=== PATIENT | male | born 1940 | race Caucasian/White ===

== ENCOUNTER 2019-01-24 20:43 | Emergency (ER) | payer MEDICARE, OTHER ==
[~2019-01-24] VITALS: Ht 182.9 cm; Wt 77.1 kg
[~2019-01-24 20:43] MED LIST: FOSI10
[2019-01-24 21:21] LABS: BASOPHILS ABSOLUTE AUTO 0.06 K/mm3 (0.00-0.23); BASOPHILS PERCENT AUTO 1 % (0-2); EOSINOPHILS ABSOLUTE AUTO 0.36 K/mm3 (0.00-0.68); EOSINOPHILS PERCENT AUTO 5 % (0-6); Hematocrit 39.6 % (37.0-53.0); Hemoglobin 12.9 g/dL (13.5-17.5); IMMATURE GRAN ABSOLUTE AUTO 0.02 K/mm3 (0.00-0.10); IMMATURE GRAN PERCENT AUTO 0 % (0-1); LYMPHOCYTES ABSOLUTE AUTO 1.49 K/mm3 (0.84-5.20); LYMPHOCYTES PERCENT AUTO 22 % (21-46); MONOCYTES ABSOLUTE AUTO 0.72 K/mm3 (0.16-1.47); MONOCYTES PERCENT AUTO 11 % (4-13); Mean Corpuscular HGB 30.6 pg (26.0-34.0); Mean Corpuscular HGB Conc 32.6 g/dL (31.5-36.5); Mean Corpuscular Volume 94 fL (80-100); Mean Platelet Volume 9.9 fL (9.1-12.4); NEUTROPHILS PERCENT AUTO 60 % (41-73); Platelet Count 214 K/mm3 (150-400); RDW Coefficient Variation 13.1 % (11.7-14.2); RDW Standard Deviation 44.8 fL (35.1-46.3); Red Blood Cell Count 4.21 M/mm3 (4.30-5.90); White Blood Cell Count 6.65 K/mm3 (4.00-11.30)
[2019-01-24 21:36] LABS: International Normalized Ratio 0.97; Prothrombin Time Results 10.3 Sec (9.7-11.5)
[2019-01-24] MEDS ORDERED: LOSARTAN (21:36)
[2019-01-24] MEDS ORDERED: LIPITOR (21:36)
[2019-01-24] MEDS ORDERED: METOPROLOL (21:36)
[2019-01-24] MEDS ORDERED: PLAVIX (21:37)
[2019-01-24] MEDS ORDERED: METFORMIN (21:37)
[2019-01-24 21:40] LABS: Alanine Aminotransfer (ALT/SGP 28 U/L (12-78); Albumin, Blood 3.7 g/dL (3.4-5.0); Albumin/Globulin Ratio 1.2 (0.8-1.8); Alk Phos 76 U/L (50-136); Anion Gap 6 mmol/L (6-16); Aspartate Aminotrans (AST/SGOT 22 U/L (12-37); Bilirubin, Total 0.5 mg/dL (0.1-1.0); Blood Urea Nitrogen 25 mg/dL (8-24); Bun/Creatinine Ratio 24.5 (12.0-20.0); CO2, Blood 25 mmol/L (21-32); Calcium, Blood 8.7 mg/dL (8.5-10.1); Chloride, Blood 107 mmol/L (98-108); Creatinine, Blood 1.02 mg/dL (0.60-1.20); Glomerular Filtration Rate >60 (60-); Glucose, Blood 126 mg/dL (70-99); Potassium, Blood 3.8 mmol/L (3.5-5.5); Sodium, Blood 138 mmol/L (136-145); Total Protein, Blood 6.7 g/dL (6.4-8.2)
== END 2019-01-24 22:35 | disposition short-term general hospital (02) ==
LOC: ER 20:43
PROVIDERS: Emergency Medicine
DX: I63.312 Cerebral infarction due to thrombosis of left middle cerebral artery (principal); R29.710 NIHSS score 10; R29.810 Facial weakness; G81.91 Hemiplegia, unspecified affecting right dominant side; R47.01 Aphasia; Z88.5 Allergy status to narcotic agent
CPT/HCPCS: 37195; 51702; 70450; 70496; 70498; 71045; 80053; 85025; 85610; 93005; 93010; 96365-59; 96374-59; 99285-25; J2997; Q3014; Q9967

== ENCOUNTER → 2019-05-14 | Outpatient (CLI) | payer MEDICARE, OTHER ==
[~2019-05-14] MED LIST changes: +LIPITOR; +LOSARTAN; +METFORMIN; +METOPROLOL; +PLAVIX
[2019-05-14 15:49] LABS: Source, Urine Clean Catch
[2019-05-14 16:56] LABS: Bilirubin, Urine Neg (Neg); Blood, Urine 5+ (Neg); Glucose Qualitative, Urine Neg (Neg); Ketones, Urine 1+ (Neg); Leukocyte Esterase, Urine 3+ (Neg); Nitrite, Urine Pos (Neg); Protein, Urine 4+ (Neg); Urobilinogen, Urine 1+ (Normal)
[2019-05-14 17:03] LABS: Appearance, Urine Cloudy (Clear); Color, Urine Yellow (P-Yellow)
[2019-05-14 17:04] LABS: White Blood Cells, Urine TNTC /hpf (0-5)
[2019-05-14 17:05] LABS: Bacteria Many /hpf; Red Blood Cells, Urine TNTC /hpf (0-2); Squamous Epithelial Cells Not Seen /hpf (Few)
== END ==
LOC: LAB SHORT 15:47
PROVIDERS: Urology
DX: N39.0 Urinary tract infection, site not specified (principal)
CPT/HCPCS: 81001

== ENCOUNTER 2019-06-04 05:42 | Emergency (ER) | payer MEDICARE, OTHER ==
[~2019-06-04] VITALS: Ht 172.7 cm; Wt 68.0 kg
[2019-06-04] MEDS ORDERED: TAMSULOSIN HCL0.4 M1 PO (06:08)
[2019-06-04] MEDS ORDERED: ATORVASTATIN CA20 MG PO (06:09)
[2019-06-04] MEDS ORDERED: WARF4 PO (06:09)
[2019-06-04] MEDS ORDERED: METOPROLOL TART25 MG PO (06:09)
[2019-06-04] MEDS ORDERED: ACET325 PO (06:10)
[2019-06-04] MEDS ORDERED: METF500 PO (06:11)
[2019-06-04] MEDS ORDERED: MELA3 PO (06:11)
[2019-06-04] MEDS ORDERED: MIRALAX17 GM PO (06:12)
[2019-06-04] MEDS ORDERED: MAG GLYCINATE100 MG PO (06:13)
[2019-06-04] MEDS ORDERED: Zovirax800 MG PO (06:24)
[2019-06-04] MEDS ORDERED: Prednisone20 MG PO (06:24)
== END 2019-06-04 07:09 | disposition home or self-care (01) ==
LOC: ER 05:42
DX: B02.9 Zoster without complications (principal); Z88.5 Allergy status to narcotic agent; Z88.8 Allergy status to other drugs, medicaments and biological substances; Z79.899 Other long term (current) drug therapy; Z79.01 Long term (current) use of anticoagulants; Z79.84 Long term (current) use of oral hypoglycemic drugs; I10 Essential (primary) hypertension; I25.2 Old myocardial infarction; Z86.73 Personal history of transient ischemic attack (TIA), and cerebral infarction without residual deficits
CPT/HCPCS: 93005; 93010; 99283-25

== ENCOUNTER 2019-09-07 19:41 | Inpatient (IN) | payer MEDICARE, OTHER ==
[~2019-09-07] VITALS: Ht 172.7 cm; Wt 61.4 kg
[~2019-09-07 19:41] MED LIST changes: +ACET325 PO; +ATORVASTATIN CA20 MG PO; +MAG GLYCINATE100 MG PO; +MELA3 PO; +METF500 PO; +METOPROLOL TART25 MG PO; +MIRALAX17 GM PO; +Prednisone20 MG PO; +TAMSULOSIN HCL0.4 M1 PO; +WARF4 PO; +Zovirax800 MG PO
[2019-09-07] MEDS ORDERED: PLAVIX75 MG PO (19:53)
[2019-09-07] MEDS ORDERED: ASPI325 PO (19:55)
[2019-09-07 20:58] LABS: BASOPHILS ABSOLUTE AUTO 0.01 K/mm3 (0.00-0.23); BASOPHILS PERCENT AUTO 0 % (0-2); EOSINOPHILS PERCENT AUTO 0 % (0-6); Hematocrit 33.2 % (37.0-53.0); Hemoglobin 10.8 g/dL (13.5-17.5); IMMATURE GRAN ABSOLUTE AUTO 0.11 K/mm3 (0.00-0.10); IMMATURE GRAN PERCENT AUTO 1 % (0-1); LYMPHOCYTES ABSOLUTE AUTO 0.53 K/mm3 (0.84-5.20); LYMPHOCYTES PERCENT AUTO 4 % (21-46); MONOCYTES ABSOLUTE AUTO 0.78 K/mm3 (0.16-1.47); MONOCYTES PERCENT AUTO 5 % (4-13); Mean Corpuscular HGB 29.9 pg (26.0-34.0); Mean Corpuscular HGB Conc 32.5 g/dL (31.5-36.5); Mean Corpuscular Volume 92 fL (80-100); NEUTROPHILS ABSOLUTE AUTO 13.58 K/mm3 (1.96-9.15); NEUTROPHILS PERCENT AUTO 91 % (41-73); Platelet Count 313 K/mm3 (150-400); RDW Coefficient Variation 14.1 % (11.7-14.2); RDW Standard Deviation 47.8 fL (35.1-46.3); Red Blood Cell Count 3.61 M/mm3 (4.30-5.90); White Blood Cell Count 15.01 K/mm3 (4.00-11.30)
[2019-09-07 21:12] LABS: Source, Urine Catheter
[2019-09-07 21:14] LABS: Bilirubin, Urine Neg (Neg); Blood, Urine 4+ (Neg); Glucose Qualitative, Urine Neg (Neg); Ketones, Urine 1+ (Neg); Leukocyte Esterase, Urine 3+ (Neg); Nitrite, Urine Neg (Neg); Protein, Urine 3+ (Neg); Urobilinogen, Urine 2+ (Normal)
[2019-09-07 21:17] LABS: Alanine Aminotransfer (ALT/SGP 21 U/L (12-78); Albumin/Globulin Ratio 0.4 (0.8-1.8); Alk Phos 102 U/L (50-136); Anion Gap 6 mmol/L (6-16); Aspartate Aminotrans (AST/SGOT 19 U/L (12-37); Bilirubin, Total 0.4 mg/dL (0.1-1.0); Blood Urea Nitrogen 28 mg/dL (8-24); Bun/Creatinine Ratio 50.5 (12.0-20.0); CO2, Blood 25 mmol/L (21-32); Calcium, Blood 8.9 mg/dL (8.5-10.1); Chloride, Blood 107 mmol/L (98-108); Creatinine, Blood 0.55 mg/dL (0.60-1.20); Globulin, Blood 4.6 g/dL (2.2-4.0); Glomerular Filtration Rate >60 (60-); Glucose, Blood 180 mg/dL (70-99); Potassium, Blood 3.3 mmol/L (3.5-5.5); Sodium, Blood 138 mmol/L (136-145); Total Protein, Blood 6.6 g/dL (6.4-8.2)
[2019-09-07 21:29] LABS: Appearance, Urine Hazy (Clear); Bacteria Many /hpf; Color, Urine Yellow (P-Yellow); Mucus Light (0-Heavy); Squamous Epithelial Cells Few /hpf (Few); White Blood Cells, Urine 25-50 /hpf (0-5)
--- NOTE | 2019-09-08 05:07 | NUR ---
RECEIVED CALL FROM TELE MORNING CAREGIVER REPORTING PT HR 140-145. LOPRESSOR ADMINISTERED. BP 124/69 PULSE 145 BEFORE ADMINISTRATION AT 0047, BP 118/69 PULSE 118 AFTER ADMINISTRATION AT 0055. PT DENIES SOB, CHEST PAIN, HEART PALPITATIONS. RESTING CALMLY.
[2019-09-08 06:19] LABS: BASOPHILS ABSOLUTE AUTO 0.02 K/mm3 (0.00-0.23); BASOPHILS PERCENT AUTO 0 % (0-2); EOSINOPHILS PERCENT AUTO 0 % (0-6); Hematocrit 33.5 % (37.0-53.0); Hemoglobin 10.8 g/dL (13.5-17.5); IMMATURE GRAN ABSOLUTE AUTO 0.17 K/mm3 (0.00-0.10); IMMATURE GRAN PERCENT AUTO 1 % (0-1); LYMPHOCYTES ABSOLUTE AUTO 0.73 K/mm3 (0.84-5.20); LYMPHOCYTES PERCENT AUTO 5 % (21-46); MONOCYTES ABSOLUTE AUTO 0.74 K/mm3 (0.16-1.47); MONOCYTES PERCENT AUTO 5 % (4-13); Mean Corpuscular HGB 29.6 pg (26.0-34.0); Mean Corpuscular HGB Conc 32.2 g/dL (31.5-36.5); Mean Corpuscular Volume 92 fL (80-100); NEUTROPHILS ABSOLUTE AUTO 12.02 K/mm3 (1.96-9.15); NEUTROPHILS PERCENT AUTO 88 % (41-73); Platelet Count 298 K/mm3 (150-400); RDW Coefficient Variation 14.1 % (11.7-14.2); RDW Standard Deviation 47.8 fL (35.1-46.3); Red Blood Cell Count 3.65 M/mm3 (4.30-5.90); White Blood Cell Count 13.68 K/mm3 (4.00-11.30)
[2019-09-08 06:58] LABS: Anion Gap 8 mmol/L (6-16); Blood Urea Nitrogen 22 mg/dL (8-24); Bun/Creatinine Ratio 37.7 (12.0-20.0); CO2, Blood 23 mmol/L (21-32); Calcium, Blood 8.3 mg/dL (8.5-10.1); Chloride, Blood 110 mmol/L (98-108); Creatinine, Blood 0.58 mg/dL (0.60-1.20); Glomerular Filtration Rate >60 (60-); Glucose, Blood 141 mg/dL (70-99); Potassium, Blood 3.2 mmol/L (3.5-5.5); Sodium, Blood 141 mmol/L (136-145)
--- NOTE | 2019-09-08 11:37 | NUR ---
TACHYCARDIA PCU WAFER SUBSTRATE TESTER NOTIFIED THIS RN THAT PT'S HEART RATE 150'S TO 170'S BUT AVERAGING IN THE 150'S. PT SITTING IN CHAIR ASYMPTOMATIC. NO SHORTNESS OF BREATH OR CHEST PAIN COMPLAINTS. THIS RN CALLED DR. HULL AND LEFT MESSAGE OF PT'S HEART RATE AND THAT THIS RN IS ADMINISTERING METOPROLOL IV PER EMAR. THIS RN ALSO TALKED WITH FRANDY ROB RN ABOUT PT'S HEART RATE AND ADMINISTERING METOPROLOL. PCU WAFER SUBSTRATE TESTER AWARE THAT METOPROLOL WAS ADMINISTERED AND WILL BE MONITOR HEART RATE. WILL MONITOR HEART RATE AND BLOOD PRESSURE AND EFFECTIVNESS OF MEDICATION. CALL LIGHT IN REACH.
--- NOTE | 2019-09-08 14:51 | NUR ---
OXYGEN SATURATION PT'S OXYGEN SATURATION WAS FOUND TO BE AT 80% ON 3L VIA NC WHEN VITALS WERE TAKEN. THIS RN INCREASED OXYGEN TO 7L AND PT'S OXYGEN SATURATION WENT UP TO 90% BUT PT'S OXYGEN LEVEL DROPPED TO 86% AFTER A FEW MINUTES. THIS RN CALLED RESPIRATORY THERAPY AND THEY SUGGESTED TO INCREASE THE OXYGEN TO 10 LITERS VIA OXYMIZER. PT HAS RECEIVED A BREATHING TREATMENT AND SUCTION WAS SET UP TO ASSIST PT WITH GETTING OUT WHATEVER HE COUGHS. DAUGHTER AT BEDSIDE TO ENCOURAGE PT TO USE IT. PT'S OXYGEN SATURATION HAS STAYED AT 10 LITERS VIA OXYMIZER. THIS RN CALLED DR. HULL AND DISCUSSED WITH HIM PT'S OXYGEN AND LUNG SOUNDS AND THAT THIS RN DID NOT FEEL COMFORTABLE GIVING PT ORAL MEDICATIONS THAT WERE RECENTLY ORDERED. DR HULL ORDERED TO HOLD ORAL MEDICATIONS AND TOLD THIS RN HE WOULD BE UP TO SEE PT SOON. WILL CONTINUE TO MONITOR PT. CALL LIGHT IN REACH.
--- NOTE | 2019-09-08 18:13 | NUR ---
SHIFT SUMMARY PT HAS NEEDED METOPROLOL IV SEVERAL TIMES THIS SHIFT FOR HEART RATE GREATER THAN 120. DR. HULL AWARE. PT'S OXYGEN LEVEL WAS LOW EARLIER ON 3L AND PT HAD TO BE INCREASED TO 10L FOR SEVERAL MINUTES. PT IS NOW DOWN TO 4L ON OXYMIZER AND OXYGEN SATURATION HAS BEEN BETWEEN 92-94%. PT CONFUSED AT TIMES AND DIFFICULT TO DIRECT HOW TO COUGH WHEN NEEDING TO. PT NPO AT THIS TIME UNTIL SPEECH THERAPY SEES HIM TOMORROW. IVF INFUSING WITHOUT DIFFICULTY. IV METOPROLOL ADMINISTERED RECENTLY. NO ACUTE CHANGES AT THIS TIME. PT RESTING QUIETLY. WILL CONTINUE TO MONITOR. BED ALARM ON FOR SAFETY AND CALL LIGHT IN REACH.
--- NOTE | 2019-09-08 18:32 | NUR ---
LAZARO CATHETER PT HAS CHRONIC INDWELLING LAZARO CATHETER. PT AND PT'S DAUGHTER, KYLIE REPORT THAT THE UROLOGIST HAS TO CHANGE PT'S CATHETER AND IT IS DUE TO BE CHANGED AROUND SEPTEMBER 20.
[2019-09-09 05:52] LABS: Anion Gap 8 mmol/L (6-16); Blood Urea Nitrogen 21 mg/dL (8-24); Bun/Creatinine Ratio 36.6 (12.0-20.0); CO2, Blood 23 mmol/L (21-32); Calcium, Blood 8.7 mg/dL (8.5-10.1); Chloride, Blood 111 mmol/L (98-108); Creatinine, Blood 0.57 mg/dL (0.60-1.20); Glomerular Filtration Rate >60 (60-); Glucose, Blood 111 mg/dL (70-99); Potassium, Blood 3.1 mmol/L (3.5-5.5); Sodium, Blood 142 mmol/L (136-145)
--- NOTE | 2019-09-09 06:15 | NUR ---
SHIFT SUMMARY PT IS A 79 Y/O MALE, ADMITTED FOR PNA. HE IS A&O X 2, THOUGH WAS VERY CONFUSED AFTER WAKING IN THE AM. NO COMPLAINTS OF PAIN, NAUSEA OR SOB. PER TELE MONITOR, PT CONVERTED FROM AFIB TO NSR WITH MULTIPLE PACS, AND THEN BACK INTO AFIB. HEART RATE REMAINED THE SAME, IN THE 100S. ALL OTHER VITAL SIGNS STABLE. PT RECEIVED LR @ 100 ML/HR THROUGH THE NIGHT. NO ACUTE CHANGES IN PT CONDITION NOTED. WILL CONTINUE TO MONITOR AND TREAT PER EMAR UNTIL HAND OFF TO DAY SHIFT RN.
--- NOTE | 2019-09-09 09:30 | NUR ---
HR IN THE 140S. PT NPO. UNABLE TO SWALLOW PO MEDS. DR. HULL NOTIFIED AND ORDERD TO GIVE ORDERED IV METOPEROL IF OVER 120. PT GIVEN IV METOPEROL ORDERED. TELEPHONE OPERATORS SUPERVISOR STATES HR DECREASING TO 120S.
--- NOTE | 2019-09-09 10:54 | NUR ---
NGT PLACEMENT CONFIRMED ANN MARIE FROM IMAGING CALLED TO COMFIRM CORRECT NGT PLACEMENT. WILL CONTINUE TO MONITOR.
--- NOTE | 2019-09-09 12:35 | NUR ---
[facility] RECCOMENDATION DR. HULL NOTIFIED THAT THE PATIENT'S DAUGHTER GOT OFF THE PHONE WITH [facility] EMPLOYEE, [employer]. RECCOMENDATION REPORTED FROM [place] TO [place] PT OFF PLAVIX AND ASPRIN, BUT REMAIN ON LOVENOX. NUMBER TAKEN AND INFOR RELAYED TO DR. HULL TO FOLLOW UP.
--- NOTE | 2019-09-09 17:34 | NUR ---
SHIFT SUMMARY PT FAILED SWALLOW EVAL THIS AM AND REMAINS NPO AT THIS TIME. NGT INSERTED THIS SHIFT FOR MEDICATION USE AND FEEDING IF NEEDED IN THE FUTURE. PT UP TO CHAIR TWICE THIS SHIFT. 1P ASSIST. SATING IN THE 90S ON 4L. PT TELE IS AFIB RUNNING AT 122. AWARE OF ELEVATED HR. PT DENIES PAIN THROUGHOUT SHIFT. ORAL CARE AND SUCTIONING COMPLETED THROUGHOUT SHIFT. NO OTHER CHANGES IN ASSESSMENT AT THIS TIME. VSS. WILL CONTINUE TO MONITOR UNTIL TURNOVER IS COMPLETE.
--- NOTE | 2019-09-09 17:43 | NUR ---
ON 09/09/2019 PATIENT GAVE STUDENT NURSE PERMISSION TO PROVIDE CARE ON 09/10/2019
--- NOTE | 2019-09-10 04:44 | NUR ---
MANAGER CLINICAL INFORMATICS SUMMARY PT AAOX3 AND PLEASANT. SOME INCREASED CONFUSION/FORGETFULNESS LATER IN THE NIGHT. PT TOLERATING NG TUBE WELL AND DENIES ANY DISCOMFORT FROM IT. HR REMAINS AFIB IN THE 100'S. AROUND 0200 GAS WELDER REPORTED HR TRENDING UP TO 130-150'S. PT GIVEN 5 MG IV LOPRESSOR, HR DOWN TO LOW 100'S SOON AFTER. DID TREND BACK UP TO 140'S FOR A FEW MINUTES PER GAS WELDER BUT NOW BACK DOWN TO 100 AT THIS TIME. PT ASYMPTOMATIC. OTHER VSS, WILL CONTINUE TO MONITOR.
[2019-09-10 06:12] LABS: Anion Gap 10 mmol/L (6-16); Blood Urea Nitrogen 22 mg/dL (8-24); CO2, Blood 24 mmol/L (21-32); Calcium, Blood 8.5 mg/dL (8.5-10.1); Chloride, Blood 111 mmol/L (98-108); Creatinine, Blood 0.54 mg/dL (0.60-1.20); Glomerular Filtration Rate >60 (60-); Glucose, Blood 99 mg/dL (70-99); Potassium, Blood 2.9 mmol/L (3.5-5.5); Sodium, Blood 145 mmol/L (136-145)
--- NOTE | 2019-09-10 09:58 | NUR ---
ELEVATED HR/HEPARIN PT HAD ELEVATED HR IN THE 160S PER COAL WASHER TENDER, KYLIE AT 0940. DR. HULL NOTIFIED. ORDERED TO GIVEN BOTH IV & PO METOPROLOL. BOTH GIVEN. [employer] INFORMED THIS RN THAT PT IS TRENDING DOWN INTO THE 110S. WILL CONTINUE TO MONITOR. HEPARIN INFUSION STARTED. VERIFIED BY AARON Taylor RN.
--- NOTE | 2019-09-10 14:34 | NUR ---
Permission for care given to student at 1539
--- NOTE | 2019-09-10 15:00 | NUR ---
ELEVATED HR IN 140S-150S. TELE MONITOR NOTIFIED THIS RN THAT PT HR WAS INCREASED TO THE 140-150S. PT GIVEN PRN IV METOPROLOL. PT HR IMMEDIATELY CAME DOWN TO 110S. WILL CONTINUE TO MONITOR.
--- NOTE | 2019-09-10 15:44 | NUR ---
PERMISSION FOR CARE PATIENT GAVE THIS STUDENT RN PERMISSION TO BE PART OF HIS CARE ON 09/11/19.
--- NOTE | 2019-09-10 16:47 | NUR ---
HR SUSTAINING IN 140S. PT HR SUSTAINING IN 140S. DR. HULL NOTIFIED. OT DOSE OF IV METOPROLOL 5 MG ORDERED. WILL CONTINUE TO MONITOR.
--- NOTE | 2019-09-10 17:02 | NUR ---
SHIFT SUMMARY PT GIVEN 3 K RIDERS THIS SHIFT. TOLERATED WELL. PT STARTED ON HEPARIN DRIP THIS SHIFT, WHICH WILL BE STOPPED AT 0500 ON 09/11/2019 IN PREP FOR THORACENTESIS IN AM. PT NGT SECURE & INTACT. PT HR HAS BEEN ELEVATED INTO THE 130-140S OFF AND ON THROUGHOUT SHIFT. PT GIVEN IV METOPROLOL 3 TIMES THIS SHIFT. PT CURRENTLY IN THE 120S PER FABRICATION OPERATOR. PT UP TO CHAIR AND TOLERATED ORAL CARE WELL. PT FAILED SWALLOW EVAL THIS SHIFT. NPO STATUS REMAINS. HEPARIN TITRATED TO 14 U/KG/HR AND VERIFIED BY AARON Taylor RN. NO OTHER CHANGES IN ASSESSMENT AT THIS TIME. OTHER VITALS STABLE. WILL CONTINUE TO MONITOR UNTIL TURNOVER IS COMPLETE.
--- NOTE | 2019-09-11 04:46 | NUR ---
SHIFT SUMMARY ASSUMED CARE PF PT AT 1900. PT IS ALERT AND ORIENTED TO SELF AND FAMILY. PT HAS BEEN CONFUSED ALL NIGHT, FOR EXAMPLE, PT HAS PULLED OUT HIS NG TUBE TWICE THIS SHIFT. HEART SOUNDS IRREGULAR, TELE SHOWS AFIB @ 120, PT PULSE ELEVATED INTO THE 150'S, MEDICATED PER EMAR, PT PULSE IN THE 100'S. LUNG SOUNDS DIMINISHED, PT HAS OCCASIONAL WET COUGH, ORAL CARE GIVEN, DENIES SOB, PT IS ON RA SATURATION ABOVE 90%. PT HAS BEEN HAVING INCONTINENT LOOSE STOOLS. CATH DRAINING WITH GRAVITY, URINE DARK AND CLOUDY. PT HAS TRIED TO GET OUT OF BED TWICE THIS SHIFT. HEPRIN DRIP HAS BEEN CHANGED ONCE THIS SHIFT, AND HAS BEEN TURNED OFF FOR PROCEDURE TODAY. CALL LIGHT IN REACH, BED IN LOWEST POSTION, WILL CONTINUE TO MONITOR UNTIL DAYSHIFT NURSE ARRIVES.
[2019-09-11 05:10] LABS: Alanine Aminotransfer (ALT/SGP 13 U/L (12-78); Albumin, Blood 1.6 g/dL (3.4-5.0); Albumin/Globulin Ratio 0.4 (0.8-1.8); Alk Phos 62 U/L (50-136); Anion Gap 7 mmol/L (6-16); Aspartate Aminotrans (AST/SGOT 13 U/L (12-37); Bilirubin, Total 0.3 mg/dL (0.1-1.0); Blood Urea Nitrogen 20 mg/dL (8-24); Bun/Creatinine Ratio 33.2 (12.0-20.0); CO2, Blood 26 mmol/L (21-32); Calcium, Blood 8.4 mg/dL (8.5-10.1); Chloride, Blood 112 mmol/L (98-108); Globulin, Blood 4.4 g/dL (2.2-4.0); Glomerular Filtration Rate >60 (60-); Glucose, Blood 129 mg/dL (70-99); Lactate Dehydrogenase (Ld),Bld 141 U/L (100-240); Potassium, Blood 3.5 mmol/L (3.5-5.5); Sodium, Blood 145 mmol/L (136-145)
--- NOTE | 2019-09-11 07:22 | NUR ---
NGT PULLED/HR IN THE 150S PT PULLED NGT THIS AM. PT UNABLE TO STATE WHY HE DID SO. NO TRAUMA NOTED AT INSERTION SITE. DR. HULL NOTIFIED & STATED OKAY TO LEAVE OUT FOR NOW. PT BACK IN THE 150S PER FARM MACHINERY MECHANIC. RATE VERIIFED & VITALS TAKEN. DR. HULL STATED TO GIVE PRN IV METOPROLOL 40 MINUTE EARLY. PT NOW IN THE 120-130S. WILL CONTINUE TO MONITOR. DR. HULL STATED HE WILL COME TO SEE PT SHORTLY.
--- NOTE | 2019-09-11 08:09 | NUR ---
PT BACK IN THE 140-150S. PT BACK IN THE 140-150S AFIB PER BRAND MANAGER. DR. HULL NOTIFIED. PT TO BE TRANSFERED TO PCU. APIARIST, LIANE NOTIFIED. WILL CONTINUE TO MONITOR.
--- NOTE | 2019-09-11 08:57 | NUR ---
THORACENTESIS UPDATE/ FAILED SWALLOW EVAL ULTRASOUND STATED THE PT NEED TO BE MORE STABLE BEFORE THEY CAN TAKE HIM FOR A PROCEDURE. DR. HULL NOTIFIED. OT IV METOPROLOL ORDERED TO DECREASE HR. PT FAILED SWALLOW EVAL AGAIN. DR. HULL NOTIFIED. CLINIMIX ORDERED AND DIETITIAN CONSULT PLACED. WILL CONTINUE TO MONITOR.
--- NOTE | 2019-09-11 09:29 | NUR ---
DR. HULL ORDERED [place] TO GIVE IV METOPROLOL WITH BP 98/62 AND HR OF 157. BP INCREASED TO 110S SYSTOLIC AFTER DOSE WAS ADMINISTERED.
[2019-09-11 10:47] LABS: Automated BF RBC Count 0.008 M/mm3 (0-0); Automated BF WBC Count 0.054 K/mm3 (0-999); Body Fluid WBC Count 54 /mm3 (0-999); RBC Count, Body Fluid 8000 /mm3 (0-0)
[2019-09-11 11:02] LABS: Glucose, Body Fluid 66 mg/dL
[2019-09-11 11:07] LABS: Lactate Dehydrogenase, Body Fl 577 U/L; Protein, Body Fluid 2.9 g/dL
[2019-09-11 11:09] LABS: pH, Body Fluid 8.5
[2019-09-11 11:25] LABS: Color, Body Fluid L Yellow (None-Yellow); Total Cell Count, Body Fluid 63
[2019-09-11 11:26] LABS: Appearance, Body Fluid Hazy (Clear)
--- NOTE | 2019-09-11 12:50 | NUR ---
PT TRANSFERED. PT TRANSFERED TO [facility]. REPORT GIVEN TO NATE HESS. PT DAUGHTER NOTIFIED.
--- NOTE | 2019-09-11 19:09 | NUR ---
SHIFT SUMMARY PT WAS TRANSFERRED DOWN FROM MEDICAL FLOOR WITH A HEART RATE OF 150'S THIS AFTERNOON. PT WAS IN A-FIB RVR AND A CARDIZEM GTT WAS STARTED. END OF SHIFT PT WAS ON CARDIZEM AT 10MG WITH HR 100-110'S. HEPARIN GTT WAS RESTARTED THIS EVENING, HOWEVER WAS DELAYED DUE TO ADDITIONAL IV NEED AND PT BECAME IRRITATED WITH STAFF WHEN ATTEMPTING TO GET 3RD IV LINE. HEPARIN GTT RESUMED AT 12U/KG/HR, PER PHARMACY. PT IS ALERT AND ORIENTED TO SELF. PT NOW IS REQUIRING FREQUENT RE-ORIENTATION AND IS ATTEMPTING TO GET UP. FAMILY WAS NOTIFIED AND HAD PLANS TO COME AND VISIT THE PT. OTHER VITALS HAVE REMAINED STABLE. PT REMAINS ON 2L NC OF OXYGEN. CHRONIC LAZARO CONTINUES TO DRAIN RONEL, CLEAR URINE.
[2019-09-12 03:58] LABS: BASOPHILS ABSOLUTE AUTO 0.04 K/mm3 (0.00-0.23); BASOPHILS PERCENT AUTO 0 % (0-2); EOSINOPHILS ABSOLUTE AUTO 0.05 K/mm3 (0.00-0.68); EOSINOPHILS PERCENT AUTO 1 % (0-6); Hematocrit 31.7 % (37.0-53.0); Hemoglobin 10.1 g/dL (13.5-17.5); IMMATURE GRAN ABSOLUTE AUTO 0.26 K/mm3 (0.00-0.10); IMMATURE GRAN PERCENT AUTO 2 % (0-1); LYMPHOCYTES ABSOLUTE AUTO 1.36 K/mm3 (0.84-5.20); LYMPHOCYTES PERCENT AUTO 12 % (21-46); MONOCYTES ABSOLUTE AUTO 0.64 K/mm3 (0.16-1.47); MONOCYTES PERCENT AUTO 6 % (4-13); Mean Corpuscular HGB 29.5 pg (26.0-34.0); Mean Corpuscular HGB Conc 31.9 g/dL (31.5-36.5); Mean Corpuscular Volume 93 fL (80-100); Mean Platelet Volume 9.4 fL (9.1-12.4); NEUTROPHILS ABSOLUTE AUTO 8.66 K/mm3 (1.96-9.15); NEUTROPHILS PERCENT AUTO 79 % (41-73); Platelet Count 398 K/mm3 (150-400); RDW Coefficient Variation 14.5 % (11.7-14.2); RDW Standard Deviation 49.1 fL (35.1-46.3); Red Blood Cell Count 3.42 M/mm3 (4.30-5.90); White Blood Cell Count 11.01 K/mm3 (4.00-11.30)
[2019-09-12 04:22] LABS: Anion Gap 7 mmol/L (6-16); Blood Urea Nitrogen 18 mg/dL (8-24); Bun/Creatinine Ratio 40.3 (12.0-20.0); CO2, Blood 26 mmol/L (21-32); Calcium, Blood 7.7 mg/dL (8.5-10.1); Chloride, Blood 110 mmol/L (98-108); Creatinine, Blood 0.45 mg/dL (0.60-1.20); Glomerular Filtration Rate >60 (60-); Glucose, Blood 209 mg/dL (70-99); Phosphorus, Blood 2.3 mg/dL (2.5-4.9); Sodium, Blood 143 mmol/L (136-145); Triglycerides 92 mg/dL (30-160)
--- NOTE | 2019-09-12 05:30 | NUR ---
CONVERT TO NSR CALL FROM [place] THAT PT CONVERTED FROM AFIB TO SR W/ PAC's, HR 60's @ APPROX 0515 THIS AM. CARDIZEM GTT PLACED ON STANDBY. CONVERSION STRIP PRINTED AND PLACED IN CHART.
--- NOTE | 2019-09-12 05:36 | NUR ---
SHIFT SUMMARY PT A&O TO SELF & FAMILY, DISORIENTED TO PLACE & TIME. LUNG SOUNDS DIM. SPO2 > 92% ON RA. MONITOR SHOWS AFIB, HR 100-150's UPON CARE ASSUMPTION, W/ HR TRENDING DOWN TO 70's-120's W/ CARDIZEM GTT INFUSING @ 10-15 MLS/HR THIS SHIFT. PT THEN CONVERTED TO NSR W/ PAC's, HR 60's @ APPROX 0515 THIS AM. CARDIZEM GTT PLACED ON STANDBY. CONVERSION STRIP PRINTED AND PLACED IN CHART. LAZARO CATH PATENT AND DRAINING. HEPARIN GTT INFUSING PER ORDERS, WELL PPN. PT NPO W/ NO ORAL MEDS GIVEN. BED ALARM ON PT ATTEMPT TO GET OOB W/ OUT CALLING. PT DAUGHTER IN TO SEE PT THIS SHIFT. WILL CONTINUE TO MONITOR AND PROVIDE CARE UNTIL REPORT OFF TO DAY SHIFT RN.
--- NOTE | 2019-09-12 17:48 | NUR ---
REPORT TO PEARL SULLIVAN
--- NOTE | 2019-09-12 19:18 | NUR ---
SHIFT SUMMARY PCU TRANSFER THIS EVENING. PATIENT SETTLED INTO ROOM. DENIES PAIN, NAUSEA, AND SHORTNESS OF BREATH. LAZARO PATENT AND DRAINING. HEPARIN DRIP RUNNING AT 13 UNITS/KG. PATIENT NPO, PPN RUNNING. PATIENT BEDFAST. FAMILY AT BEDSIDE. CALL LIGHT IN REACH.
--- NOTE | 2019-09-12 19:59 | NUR ---
1942- DAUGHTER JUST LEFT FOR THE NIGHT. PATIENT IS COMFORTABLE IN BED AND READY TO GO TO SLEEP. AOX2, MILD CONFUSION. BED ALARM IS ON. IV HEPARIN, IV TPN ALL INFUSING WITH NO PROBLEMS. VERIFIED HEPARIN WITH OFF GOING NURSE. IV SITES ALL PATENT AND LOOK GOOD. LUNG SOUNDS DIMINISHED ON THE RIGHT, CLEAR ALL OTHER AREAS. COUGH IS NONPRODUCTIVE AT THIS TIME. MILD SWELLING IN BLE. NO PAIN NOTED. CALL LIGHT IN REACH. WILL CONTINUE TO MONITOR.
--- NOTE | 2019-09-12 22:43 | NUR ---
2099- JAMES TEMPLETON CALLED REPORTING THE PATIENT CONVERTED INTO AFLUTTER AND WILL CALL WHEN HE GETS A RATE. WAS IN ROOM WITH THE PATIENT. HE DENIES ANY PALPITATIONS, CHEST PAIN, LIGHTHEADNESS, OR OTHER CARDIAC SYMPTOMS. [id number]-JAMES CALLED BACK REPORTING HE JUST STARTED TO AVERAGE IN THE 110'S. PATIENT WAS RESTING IN THE ROOM, DENIES ANY PALPITATIONS OR CHEST PAIN. WILL CONTINUE TO MONITOR.
--- NOTE | 2019-09-13 05:33 | NUR ---
SHIFT SUMMARY: BRINA WAS COOPERATIVE THIS SHIFT. HE DOES HAVE FORGETFULNESS AND SOME CONFUSION THROUGHOUT THE NIGHT. BUT WAS EASILY REORIENTED. COUGH IS NON-PRODUCTIVE AND HARSH AT TIMES. VS HAVE REMAINED WNL. DENIED ANY PAIN OR DISCOMFORT THIS SHIFT. CATHETER PATENT AND DRAINING CLEAR YELLOW. LUNG SOUNDS DIMINISHED. TELEMETRY REPORTED CONVERSATION TO A FLUTTER LAST NIGHT RUNNING IN THE 110'S. PATIENT DENIES ANY SYMPTOMS, DOES HAVE HISTORY OF. IV HEPARIN REMAINS RUNNING AT 16.9ML/HR. TPN REMAINS INFUSING. IV ANTIBOTIC ALSO GIVEN, ALL THREE IV SITES PATENT AT THIS TIME. PATIENT VERY QUIT AND AT TIMES DIFFICULT TO UNDERSTAND DUE TO SLURRED/GARBLED SPEECH. WILL REPORT TO DAY SHIFT RN.
[2019-09-13 05:34] LABS: Magnesium, Blood 2.1 mg/dL (1.6-2.4); Phosphorus, Blood 2.6 mg/dL (2.5-4.9)
--- NOTE | 2019-09-13 17:36 | NUR ---
SHIFT SUMMARY PATIENT DENIES PAIN, NAUSEA, AND SHORTNESS OF BREATH. PATIENT MAINTAINING OXYGEN SATURATION ABOVE 92% ON ROOM AIR. PATIENT HAS BEEN CONFUSED AND ATTEMPTED TO STAND/CLIMB OUT OF BED SEVERAL TIMES TODAY. HEPARIN DRIP RUNNING AT 15 UNITS/KG. PPN RUNNING, PATIENT REMAINS NPO. DR. HOLLAND CONSULTED ON PATIENT TODAY. GI CONSULTED FOR POSSIBLE PEG TUBE. DR. CONNOR SCREW DOWN FOR GI, FORWARDED CONSULT TO SURGERY HE DOES NOT PLACE PEG TUBES. PATIENT HAS STAYED IN A FLUTTER DURING THIS SHIFT. RATE HAS BEEN CONTROLLED SINCE SCHEDULED IV LOPRESSOR STARTED. CALL LIGHT IN REACH.
--- NOTE | 2019-09-13 20:48 | NUR ---
191-PATIENT REQUESTED TO GET UP TO BSC, STATING THAT HE FEELS HE NEEDS TO HAVE A BM. DAUGHTER IS IN THE ROOM. BRINA IS A LITTLE MORE CONFUSED TONIGHT THEN PRIOR NIGHT. SPEECH IS GARBLED AND WITH FRACTURED SENTENCES. HE IS ALSO SEEING THINGS THAT IS NOT IN THE ROOM. THOUGHT THE WALL WAS SPRAYING STUFF ON HIM. HE ENDED UP NOT GOING TO THE BATHROOM, JUST SAT THERE. HE CONTINUED TO ASK SAME QUESTIONS OVER AGAIN, WAS EVEN STARTING TO PLAY WITH HIS CATHETER. COUGH IS STILL PRESENT IF THERE IS MUCUS IN THE BRONICAL TUBES THAT HE IS UNABLE TO COUGH OUT. LUNGS ARE CLEAR AND DIMINSHED. ENCOURAGED HIM TO CONTINUE TO COUGH IT IS WEAK. ASSISTED BACK TO BED, BED ALARM PLACED. IV HEPARIN AND TPN INFUSING. CALL LIGHT IN REACH.
[2019-09-14 03:21] LABS: Hemoglobin 10.7 g/dL (13.5-17.5); Mean Corpuscular HGB 29.3 pg (26.0-34.0); Mean Corpuscular HGB Conc 32.4 g/dL (31.5-36.5); Mean Corpuscular Volume 90 fL (80-100); Mean Platelet Volume 9.2 fL (9.1-12.4); Platelet Count 447 K/mm3 (150-400); RDW Coefficient Variation 14.3 % (11.7-14.2); RDW Standard Deviation 46.4 fL (35.1-46.3); Red Blood Cell Count 3.65 M/mm3 (4.30-5.90); White Blood Cell Count 9.38 K/mm3 (4.00-11.30)
[2019-09-14 03:37] LABS: Albumin, Blood 1.6 g/dL (3.4-5.0); Anion Gap 7 mmol/L (6-16); Blood Urea Nitrogen 9 mg/dL (8-24); Bun/Creatinine Ratio 17.7 (12.0-20.0); CO2, Blood 25 mmol/L (21-32); Chloride, Blood 108 mmol/L (98-108); Creatinine, Blood 0.51 mg/dL (0.60-1.20); Glomerular Filtration Rate >60 (60-); Glucose, Blood 152 mg/dL (70-99); Phosphorus, Blood 2.6 mg/dL (2.5-4.9); Potassium, Blood 3.3 mmol/L (3.5-5.5); Sodium, Blood 140 mmol/L (136-145)
--- NOTE | 2019-09-14 05:20 | NUR ---
SHIFT SUMMARY: BRINA HAS BEEN MORE CONFUSED THIS NIGHT THEN PREVIOUS NIGHT. HE NEEDED MORE REDIRECTING AT START OF SHIFT. HE EVEN WAS HAVING VISUAL HULLUCINATIONS. HE WOULD ASK SAME QUESTIONS FREQUENTLY. HE WAS RESTLESS WHEN GOING TO BED BUT THAT EVENTUALLY STOPPED HE FELL ASLEEP. HE DID TRY TO GET OUT OF BED ON HIS OWN ONCE. HEPARIN REMAINED UNFUSING, NO DOSE ADJUSTMENTS NEEDED. TPN ALSO CONTINUED TO INFUSE. CATHETER REMAINED PATENT AND DRAINING. TELEMETRY SHOWED HE WAS AFLUTTER RUNNING 80S TO 90'S. VS REMAINED WNL. NO OTHER CHANGES THIS SHIFT. CALL LIGHT IN REACH AND BED ALARM IS ON.
--- NOTE | 2019-09-14 17:50 | NUR ---
PT CONTINUES TO HAVE PPN RUNNING, TOLERATING WELL. PT OFTEN CONFUSED BUT IS REDIRECTABLE. HE WAS UP IN CHAIR FOR 15 MINUTES BEFORE WANTING TO GET BACK IN BED. CBG'S WNL. NO COMPLAINTS THIS SHIFT.
--- NOTE | 2019-09-14 21:50 | NUR ---
1930- ASSUMED CARE OF THE PATIENT, FAMILY IS IN ROOM VISITING FOR A FEW HOURS. PATIENT IN A GOOD MOOD, STATES HE IS FEELING BETTER. CHECKED IV SITES, NOTICED SWELLING AND REDNESS AT SITE BUT COBAN WAS REALLY TIGHT, HE SAID IT WAS FEELING FINE AND IT WAS INFUSING WITH NO PROBLEMS. WILL CHECK ON IT LATER TO SEE IF IT CHANGES. LUNG SOUNDS ARE IMPROVING MORE CLEAR THEN PREVIOUS NIGHT. SPEECH IS STILL GARBALED AND DIFFICULT TO UNDERSTAND. INFORMED FAMILY OF NIGHT PLANS AND PLANS FOR TOMORROW. ANSWERED ANY QUESTIONS THEY HAD. PATIENT STATES HE IS READY FOR THE PROCEDURE. CALL LIGHT IN REACH, WILL CONTINUE TO MONITOR.
--- NOTE | 2019-09-14 21:54 | NUR ---
PCU RADIOTELEGRAPH OPERATOR SERVICER CALLED REPORTING THAT THE PATIENTS RATE HAS BEEN SLOWLY CLIMBING UP ALL DAY, HE WAS RUNNING 102-110 AROUND 4PM TODAY. NOW HE IS RUNNING AN AVERAGE OF 128. INFORMED HER TO KEEP ME INFORMED HE GETS IV LOPRESSOR EVERY 6 HOURS.
--- NOTE | 2019-09-15 01:58 | NUR ---
BRINA IS WAKING UP CONFUSED AND DISORIENTED. DOES NOT KNOW HE IS IN THE HOSPITAL. STATING HE HAS TO GET UP AND GO. HAD TO REORIENT HIM TO WHAT IS GOING ON. HE HAS DONE THIS SEVERAL TIMES SO FAR. CONTINUE TO TUCK HIM IN AND ENCOURAGE HIM TO GET SOME SLEEP FOR HIS SURGERY TOMORROW.
--- NOTE | 2019-09-15 04:08 | NUR ---
SHIFT SUMMARY: BRINA HAS A ROUGH NIGHT HIS CONFUSION WAS MORE SEVERE THEN PREVIOUS NIGHTS. THIS MADE HIM RESTLESS IN BED. HE ONLY ATTEMPTED TO GET UP A COUPLE TIMES BUT WAS REDIRECTED EASILY. HE DID HAVE INCREASE IN HEART RATE UP TO 128 THAT WAS SUSTAINING UNTIL MIDNIGHT LOPRESSER WAS GIVEN. HR GAME DOWN 99. BLOOD PRESSURE REMAINED NORMAL. CATHETER REMAINED PATENT AND DRAINING. IV IN KEVIN WAS DC'D DUE TO REDNESS AND PAIN. NEW 18G WAS STARTED ON RIGHT WRIST. SURGICAL CHECKLIST STARTED AND PACKET ON FRONT OF CHART. TPN AND HEPARIN CONTINUING TO INFUSE. WILL STOP HEPARIN AT 0600 FOR SURGERY. NO OTHER CHANGES TO NOTE, WILL REPORT TO DAY SHIFT.
--- NOTE | 2019-09-15 06:12 | NUR ---
HEPARIN STOPPED AT 0610, IV LOPRESSOR GIVEN. CURRENT HR IN THE 90'S. IV LINE FLUSHED AND SL
[2019-09-15 06:20] LABS: Albumin, Blood 1.6 g/dL (3.4-5.0); Anion Gap 5 mmol/L (6-16); Blood Urea Nitrogen 10 mg/dL (8-24); Bun/Creatinine Ratio 24.2 (12.0-20.0); CO2, Blood 23 mmol/L (21-32); Chloride, Blood 105 mmol/L (98-108); Creatinine, Blood 0.41 mg/dL (0.60-1.20); Glomerular Filtration Rate >60 (60-); Glucose, Blood 292 mg/dL (70-99); Magnesium, Blood 2.2 mg/dL (1.6-2.4); Phosphorus, Blood 3.9 mg/dL (2.5-4.9); Potassium, Blood 4.6 mmol/L (3.5-5.5); Sodium, Blood 133 mmol/L (136-145)
[2019-09-15 06:28] LABS: Digoxin (Lanoxin) 0.51 ug/mL (0.80-2.00)
--- NOTE | 2019-09-15 10:19 | NUR ---
PT HAD IV PLACED ON NOC SHIFT. WAS NOT RECORDED AND THIS NURSE DID NOT KNOW THE INITALS OF THE NURSE WHO DID. THIS NURSE RECORDED IT SO THERE WOULD BE SOMETHING TO CHART ON AND ASSESS.
--- NOTE | 2019-09-15 11:42 | NUR ---
09/15/19 1142 Ren Adams History, Chart, Medications and Allergies reviewed before start of procedure.MONITOR INTACT WITH CONTINUOUS PULSE OXIMETRY AND INTERMITTENT BP.3-LEAD EKG REVIEWED WITH PHYSICIAN PRIOR TO START OF PROCEDURE.O2 VIA N/C INTACT THROUGHOUT SEDATION/PROCEDURE. See Anesthesia record.
--- NOTE | 2019-09-15 12:34 | NUR ---
PT HAS NO IV ACCESS AND WAITING FOR FAMILY TO COME IN THEY STATED AND PUT PATIENT ON CC . PT EXTREMELY FRAIL AND DIFFICULT TO FIND VEIN ACCESS. TALKED WITH DOCTOR ON AND SHE STATED WE CAN WAIT TO TALK WITH FAMILY BEFORE ATTEMPTING TO PUT NEW IV IN. PT SLEEPING AT THIS TIME.
--- NOTE | 2019-09-15 17:33 | NUR ---
PT HAD PEG PLACED THIS AFTERNOON. TOLERATED PROCEDURE WELL AND HAS BEEN SLEEPING ALL AFTERNOON. DAUGHTER AT BEDSIDE. PT RESTARTED ON HEPARIN DRIP PER PHARMACY ORDER. CLINIMEX HUNG AND RUNNING. PT VERY DROWSY . NO DISTRESS NOTED. VSS.
--- NOTE | 2019-09-16 04:32 | NUR ---
SHIFT SUMMARY ALERT, ABLE TO MAKE NEEDS KNOWN. COOPERATIVE WITH CARE. CALLS AND ANSWERS QUESTIONS APPROPRIATELY. SOFT SPOKEN WITH SLIGHTLY GARBLED SPEECH. DAUGHTER REMAINED AT BEDSIDE OVERNIGHT. PATIENT APPEARED TO REST MUCH OF SHIFT. IV HEPARIN TO 20G IN REGLA INFUSED WITHOUT COMPLICATION; RATE ADJUSTED AND 2RN VERIFICATION USED. CLINIMIX RUNNING TO 18G IN R WRIST INFUSED WITHOUT COMPLICATION. NO C/O PAIN/DISCOMFORT. NO ACUTE CHANGES NOTED OVERNIGHT. TELEMETRY RUNNING AFIB BETWEEN 80-120. BED REMAINS IN LOWEST POSITION; ALARM ON. CALL LIGHT AND BELONGINGS WITHIN REACH. WCTM. REPORT TO ONCOMING RN.
[2019-09-16 06:15] LABS: Hematocrit 36.4 % (37.0-53.0); Mean Corpuscular HGB 29.1 pg (26.0-34.0); Mean Corpuscular HGB Conc 30.2 g/dL (31.5-36.5); Mean Platelet Volume 9.7 fL (9.1-12.4); Platelet Count 515 K/mm3 (150-400); RDW Coefficient Variation 15.1 % (11.7-14.2); RDW Standard Deviation 51.5 fL (35.1-46.3); Red Blood Cell Count 3.78 M/mm3 (4.30-5.90); White Blood Cell Count 10.02 K/mm3 (4.00-11.30)
[2019-09-16 06:31] LABS: Mean Corpuscular Volume 96 fL (80-100)
[2019-09-16 06:38] LABS: Albumin, Blood 1.8 g/dL (3.4-5.0); Anion Gap 8 mmol/L (6-16); Blood Urea Nitrogen 14 mg/dL (8-24); Bun/Creatinine Ratio 26.7 (12.0-20.0); CO2, Blood 21 mmol/L (21-32); Calcium, Blood 8.4 mg/dL (8.5-10.1); Chloride, Blood 102 mmol/L (98-108); Creatinine, Blood 0.53 mg/dL (0.60-1.20); Glomerular Filtration Rate >60 (60-); Glucose, Blood 346 mg/dL (70-99); Magnesium, Blood 2.5 mg/dL (1.6-2.4); Phosphorus, Blood 5.8 mg/dL (2.5-4.9); Potassium, Blood 5.3 mmol/L (3.5-5.5); Sodium, Blood 131 mmol/L (136-145)
[2019-09-16 06:48] LABS: Digoxin (Lanoxin) 0.58 ug/mL (0.80-2.00)
--- NOTE | 2019-09-16 09:34 | NUR ---
SPOKE WITH JEANMARIE AT DR. PATTON'S OFFICE. DR. PATTON GAVE THE OK TO USE PEG TUBE.
--- NOTE | 2019-09-16 15:05 | NUR ---
On September 16, 2019 I asked patient to give care as a skilled nursing facility counselor on Tuesday September 17, 2019. Patient agreed to care for Tuesday September 17, 2019.
--- NOTE | 2019-09-16 17:45 | NUR ---
PATIENT A/OX2, DIFFICULT TO UNDERSTAND AT TIMES DUE TO GARBLES SPEECH. DAUGHTER AT BEDSIDE FOR MOST OF THE SHIFT. PATIENT STARTED ON CONTINOUS FEEDS TODAY CURRENTLY AT 25ML/HR WITH Q4 HOUR H20 FLUSHES. GOAL RATE OF 45ML/HR. IF TOLERATEES WELL WILL START BOLUS FEEDS IN AM. HEPARIN GTT DC'D AND PATIENT SWITCHED TO LOVENOX. PATIENT IS NOW SL BETWEEN ABX. UP WITH 1 ASSIST TO CHAIR. VSS, ON RA. A-FIB ON TELE WITH RATE CONTROLLED. DENIES ANY PAIN. DAUGHTER KYLIE WILL NEED TO BE TAUGHT ON HOW TO GIVE BOLUS FEEDS BEFORE DC.
--- NOTE | 2019-09-16 20:04 | NUR ---
I WAS INSTRUCTED BY NURSE TO TAKE VS AT 21:00
--- NOTE | 2019-09-17 04:03 | NUR ---
SHIFT SUMMARY ASSUMED CARE OF PT AT 1900. PT IS A/O TO SELF AND FAMILY AND PART OF THE SITUATION, PT DENIES N/T IN EXTREMITIES. HEART SOUNDS IRREGULAR, TELE SHOWED PT SWITCHES BETWEEN AFLUTTER AND SINUS WITH PAC'S @ 90-100, DENIES CP AT THIS TIME. LUNG SOUNDS CLEAR, DENIES SOB AT THIS TIME. PT HAS CONTINOUS FEEDING GOING AT 45ML/HR NOW, NO RESIDUAL WHEN CHECKED, PT FOUND IT HARD TO SLEEP WITH HIS HEAD AT 45 DEGREES, PUMP IS SCHEDULED TO BE TURNED OFF AT 0600 FOR BOLUS FEEDING TODAY. PEG TUBE SITE IS FREE OF REDNESS AND DISCHARGE, PT C/O PAIN WHEN TURNED. PT DID NOT SLEEP WELL DURING THE NIGHT, PT WOULD WAKE UP TO C/O NOT LIKING HIS HEAD POSITION AND DUE TO DREAMS. DAUGHTER IN ROOM WITH PT DURING THE NIGHT. PT IS EXPECTED O GO HOME WITH DAUGHTER TODAY AFTER TEACHINGS. CALL LIGHT IN REACH, BED IN LOWEST POSTION, WILL CONTINUE TO MONITOR UNTIL DAYSHIFT NURSE ARRIVES.
[2019-09-17 05:42] LABS: Magnesium, Blood 2.3 mg/dL (1.6-2.4); Phosphorus, Blood 3.1 mg/dL (2.5-4.9)
[2019-09-17] MEDS ORDERED: LEVO750 PO (12:06)
[2019-09-17] MEDS ORDERED: LANOXIN125 MCG PO (12:09)
[2019-09-17] MEDS ORDERED: ENOX60I SC (12:10)
--- NOTE | 2019-09-17 13:33 | NUR ---
PATIENT DC'D TO HOME WITH DAUGHTER WITH HOME HEALTH. TUBE FEED AND WATER BOLUS DEMOSTRATED TO DAUGHTER AND SHE WAS ABLE TO DO IT WELL AT DC. TUBE FEED SUPPLIES AND FORMULA SENT HOME WITH PATIENT. DC INSTRUCTIONS AND EDUCATION DISCUSSED WITH PATIENT PRIOR TO DC. RX MEDICATIONS FAXED TO [facility]. SCRIPT FOR FWW SENT TO [facility] AND DAUGHTER INSTRUCTED TO CALL LATER TODAY TO SEE IF IT WAS APPROVED. PATIENT AND DAUGHTER DENY ANY FURTHER QUESTIONS OR CONCERNS.
== END 2019-09-17 13:28 | disposition home health service (06) | DRG 871 ==
LOC: ER 19:41 → MEDS 21:55 → PCU 09-11 12:45 → MEDS 09-12 18:15 → ENPENDDIS 09-17 10:37 → MEDS 09-17 13:28
PROVIDERS: Hospitalist; Internal Medicine; Physician Assistant; ADMIT Family Medicine
PROC: 0DH67UZ Insertion of Feeding Device into Stomach, Via Natural or Artificial Opening (ICD-10-PCS; 2019-09-09)
PROC: 0W9930Z Drainage of Right Pleural Cavity with Drainage Device, Percutaneous Approach (ICD-10-PCS; principal; 2019-09-11)
PROC: 3E0G76Z Introduction of Nutritional Substance into Upper GI, Via Natural or Artificial Opening (ICD-10-PCS; 2019-09-17)
DX: A40.9 Streptococcal sepsis, unspecified (principal); J69.0 Pneumonitis due to inhalation of food and vomit; I63.9 Cerebral infarction, unspecified; J96.01 Acute respiratory failure with hypoxia; J90 Pleural effusion, not elsewhere classified; I48.92 Unspecified atrial flutter; R13.10 Dysphagia, unspecified; I48.0 Paroxysmal atrial fibrillation; I65.23 Occlusion and stenosis of bilateral carotid arteries; I25.10 Atherosclerotic heart disease of native coronary artery without angina pectoris; E11.51 Type 2 diabetes mellitus with diabetic peripheral angiopathy without gangrene; E87.6 Hypokalemia; I10 Essential (primary) hypertension; N40.0 Benign prostatic hyperplasia without lower urinary tract symptoms; R65.20 Severe sepsis without septic shock; Z95.5 Presence of coronary angioplasty implant and graft; Z79.84 Long term (current) use of oral hypoglycemic drugs; Z79.82 Long term (current) use of aspirin; Z79.02 Long term (current) use of antithrombotics/antiplatelets; Z79.899 Other long term (current) drug therapy; Z87.891 Personal history of nicotine dependence; I25.2 Old myocardial infarction
CPT/HCPCS: 32555; 36415; 71045; 71260; 80048; 80053; 80069; 80162; 81001; 82042; 82945; 82947; 83605; 83615; 83735; 83986; 84100; 84157; 84478; 85025; 85027; 85730; 87040; 87070; 87075; 87086; 87186; 87205; 89051; 92526; 92610; 94640; 94667; 94760; 96365; 97116; 97162; 97166; 97530; 99285-25; A9270-GY; C1769; J0696; J1160; J1644; J1650; J2001; J2060; J2250; J2370; J2543; J2704; J3480; J7030; J7050; J7120; Q9967

== ENCOUNTER → 2019-09-27 | Outpatient (CLI) | payer MEDICARE, OTHER ==
[~2019-09-27] MED LIST changes: +ASPI325 PO; +CEFP200 PO; +ENOX60I SC; +LANOXIN125 MCG PO; +LEVO750 PO; +PLAVIX75 MG PO
[2019-09-27 16:30] LABS: BASOPHILS ABSOLUTE AUTO 0.03 K/mm3 (0.00-0.23); BASOPHILS PERCENT AUTO 1 % (0-2); EOSINOPHILS ABSOLUTE AUTO 0.06 K/mm3 (0.00-0.68); EOSINOPHILS PERCENT AUTO 1 % (0-6); Hematocrit 34.4 % (37.0-53.0); Hemoglobin 10.7 g/dL (13.5-17.5); IMMATURE GRAN ABSOLUTE AUTO 0.01 K/mm3 (0.00-0.10); IMMATURE GRAN PERCENT AUTO 0 % (0-1); LYMPHOCYTES PERCENT AUTO 19 % (21-46); MONOCYTES ABSOLUTE AUTO 0.48 K/mm3 (0.16-1.47); MONOCYTES PERCENT AUTO 9 % (4-13); Mean Corpuscular HGB 30.1 pg (26.0-34.0); Mean Corpuscular HGB Conc 31.1 g/dL (31.5-36.5); Mean Corpuscular Volume 97 fL (80-100); Mean Platelet Volume 10.4 fL (9.1-12.4); NEUTROPHILS ABSOLUTE AUTO 3.67 K/mm3 (1.96-9.15); NEUTROPHILS PERCENT AUTO 70 % (41-73); Platelet Count 365 K/mm3 (150-400); RDW Coefficient Variation 15.9 % (11.7-14.2); RDW Standard Deviation 55.5 fL (35.1-46.3); Red Blood Cell Count 3.56 M/mm3 (4.30-5.90); White Blood Cell Count 5.25 K/mm3 (4.00-11.30)
[2019-09-27 16:50] LABS: International Normalized Ratio 1.56; Prothrombin Time Results 16.3 Sec (9.7-11.5)
[2019-09-27 16:56] LABS: Magnesium, Blood 2.1 mg/dL (1.6-2.4)
[2019-09-27 17:11] LABS: Alanine Aminotransfer (ALT/SGP 25 U/L (12-78); Albumin, Blood 2.6 g/dL (3.4-5.0); Albumin/Globulin Ratio 0.6 (0.8-1.8); Alk Phos 67 U/L (50-136); Anion Gap 3 mmol/L (6-16); Aspartate Aminotrans (AST/SGOT 26 U/L (12-37); Bilirubin, Total 0.2 mg/dL (0.1-1.0); Blood Urea Nitrogen 18 mg/dL (8-24); Bun/Creatinine Ratio 42.5 (12.0-20.0); CO2, Blood 29 mmol/L (21-32); Calcium, Blood 8.9 mg/dL (8.5-10.1); Chloride, Blood 103 mmol/L (98-108); Creatinine, Blood 0.42 mg/dL (0.60-1.20); Digoxin (Lanoxin) 0.91 ug/mL (0.80-2.00); Globulin, Blood 4.4 g/dL (2.2-4.0); Glomerular Filtration Rate >60 (60-); Glucose, Blood 96 mg/dL (70-99); Phosphorus, Blood 3.3 mg/dL (2.5-4.9); Potassium, Blood 3.8 mmol/L (3.5-5.5); Sodium, Blood 135 mmol/L (136-145)
== END ==
LOC: LAB 15:15 → LAB SHORT 15:15
PROVIDERS: Family Medicine
DX: Z51.81 Encounter for therapeutic drug level monitoring (principal); J15.4 Pneumonia due to other streptococci; I48.91 Unspecified atrial fibrillation; Z78.9 Other specified health status; Z79.899 Other long term (current) drug therapy
CPT/HCPCS: 80053; 80162; 83735; 84100; 85025; 85610

== ENCOUNTER 2019-09-29 18:08 | Inpatient (IN) | payer MEDICARE, OTHER ==
[~2019-09-29] VITALS: Ht 172.7 cm; Wt 63.8 kg
[~2019-09-29 18:08] MED LIST changes: -ACET325 PO; +ACET325 PT; -ATORVASTATIN CA20 MG PO; +ATORVASTATIN CA20 MG PT; -LANOXIN125 MCG PO; +LANOXIN125 MCG PT; -MELA3 PO; +MELA3 PT; -METOPROLOL TART25 MG PO; +METOPROLOL TART25 MG PT
[2019-09-29 18:34] LABS: BASOPHILS ABSOLUTE AUTO 0.02 K/mm3 (0.00-0.23); BASOPHILS PERCENT AUTO 0 % (0-2); EOSINOPHILS PERCENT AUTO 0 % (0-6); Hematocrit 28.1 % (37.0-53.0); Hemoglobin 8.9 g/dL (13.5-17.5); IMMATURE GRAN ABSOLUTE AUTO 0.07 K/mm3 (0.00-0.10); IMMATURE GRAN PERCENT AUTO 1 % (0-1); LYMPHOCYTES ABSOLUTE AUTO 0.65 K/mm3 (0.84-5.20); LYMPHOCYTES PERCENT AUTO 4 % (21-46); MONOCYTES ABSOLUTE AUTO 1.07 K/mm3 (0.16-1.47); MONOCYTES PERCENT AUTO 7 % (4-13); Mean Corpuscular HGB 30.5 pg (26.0-34.0); Mean Corpuscular HGB Conc 31.7 g/dL (31.5-36.5); Mean Corpuscular Volume 96 fL (80-100); Mean Platelet Volume 10.4 fL (9.1-12.4); NEUTROPHILS ABSOLUTE AUTO 13.48 K/mm3 (1.96-9.15); NEUTROPHILS PERCENT AUTO 88 % (41-73); Platelet Count 436 K/mm3 (150-400); RDW Coefficient Variation 15.8 % (11.7-14.2); RDW Standard Deviation 55.3 fL (35.1-46.3); Red Blood Cell Count 2.92 M/mm3 (4.30-5.90); White Blood Cell Count 15.29 K/mm3 (4.00-11.30)
[2019-09-29 18:49] LABS: Alanine Aminotransfer (ALT/SGP 25 U/L (12-78); Albumin, Blood 2.5 g/dL (3.4-5.0); Albumin/Globulin Ratio 0.6 (0.8-1.8); Alk Phos 64 U/L (50-136); Anion Gap 11 mmol/L (6-16); Aspartate Aminotrans (AST/SGOT 24 U/L (12-37); Bilirubin, Total 0.2 mg/dL (0.1-1.0); Blood Urea Nitrogen 24 mg/dL (8-24); Bun/Creatinine Ratio 40.7 (12.0-20.0); CO2, Blood 22 mmol/L (21-32); Chloride, Blood 104 mmol/L (98-108); Creatinine, Blood 0.59 mg/dL (0.60-1.20); Globulin, Blood 4.2 g/dL (2.2-4.0); Glomerular Filtration Rate >60 (60-); Glucose, Blood 246 mg/dL (70-99); Potassium, Blood 4.2 mmol/L (3.5-5.5); Sodium, Blood 137 mmol/L (136-145); Total Protein, Blood 6.7 g/dL (6.4-8.2)
[2019-09-29] MEDS ORDERED: ENOX60I SC (18:57)
[2019-09-29] MEDS ORDERED: WARF4 PO (19:41)
[2019-09-29 19:58] LABS: Percent Saturation 10.9 % (20.0-50.0)
[2019-09-29 21:00] LABS: Digoxin (Lanoxin) 0.89 ug/mL (0.80-2.00)
[2019-09-30 01:53] LABS: BASOPHILS ABSOLUTE AUTO 0.01 K/mm3 (0.00-0.23); BASOPHILS PERCENT AUTO 0 % (0-2); EOSINOPHILS PERCENT AUTO 0 % (0-6); Hematocrit 20.6 % (37.0-53.0); Hemoglobin 6.4 g/dL (13.5-17.5); IMMATURE GRAN ABSOLUTE AUTO 0.11 K/mm3 (0.00-0.10); IMMATURE GRAN PERCENT AUTO 1 % (0-1); LYMPHOCYTES ABSOLUTE AUTO 0.67 K/mm3 (0.84-5.20); LYMPHOCYTES PERCENT AUTO 6 % (21-46); MONOCYTES ABSOLUTE AUTO 0.84 K/mm3 (0.16-1.47); MONOCYTES PERCENT AUTO 7 % (4-13); Mean Corpuscular HGB 29.9 pg (26.0-34.0); Mean Corpuscular HGB Conc 31.1 g/dL (31.5-36.5); Mean Corpuscular Volume 96 fL (80-100); Mean Platelet Volume 10.4 fL (9.1-12.4); NEUTROPHILS ABSOLUTE AUTO 9.76 K/mm3 (1.96-9.15); NEUTROPHILS PERCENT AUTO 86 % (41-73); Platelet Count 292 K/mm3 (150-400); RDW Coefficient Variation 15.9 % (11.7-14.2); RDW Standard Deviation 55.5 fL (35.1-46.3); Red Blood Cell Count 2.14 M/mm3 (4.30-5.90); White Blood Cell Count 11.39 K/mm3 (4.00-11.30)
[2019-09-30 02:04] LABS: Anion Gap 11 mmol/L (6-16); Blood Urea Nitrogen 24 mg/dL (8-24); Bun/Creatinine Ratio 37.4 (12.0-20.0); CO2, Blood 24 mmol/L (21-32); Chloride, Blood 106 mmol/L (98-108); Creatinine, Blood 0.64 mg/dL (0.60-1.20); Glomerular Filtration Rate >60 (60-); Glucose, Blood 171 mg/dL (70-99); Potassium, Blood 4.3 mmol/L (3.5-5.5); Sodium, Blood 141 mmol/L (136-145); Troponin I 0.075 ng/mL (0.000-0.040)
[2019-09-30 06:59] LABS: Source, Urine Catheter
[2019-09-30 07:09] LABS: Bilirubin, Urine Neg (Neg); Blood, Urine 2+ (Neg); Glucose Qualitative, Urine Neg (Neg); Ketones, Urine 1+ (Neg); Leukocyte Esterase, Urine 2+ (Neg); Nitrite, Urine Neg (Neg); Protein, Urine 3+ (Neg); Specific Gravity, Urine 1.025 (1.003-1.022); Urobilinogen, Urine NORM (Normal)
--- NOTE | 2019-09-30 07:23 | NUR ---
PT IS ALERT, ORIENTED TO PERSON, PLACE, HAS EXPRESSIVE APHASIA. ABLE TO MAKE NEEDS KNOWN. PT IS ON CARDIZEM GTT AT 10MG/HOUR FOR AFIB W/RVR, 90-110'S. B/P STABLE. PT HAD HGB AT 6.4, 2U PRBC ORDERED, ONE UNIT INFUSED THIS SHIFT WITHOUT COMPLICATIONS. LUNG SOUNDS CLEAR TO AUSCULTATION, STABLE OXYGEN SATURATION ON ROOM AIR, DENIES SOB. PT HAS PEG TUBE, FLUSHES WELL. PT HAD 1 EPISODE OF NAUSEA, RELIEVED WITH ZOFRAN 4MG IV X1. PT HAD ANXIETY AND WANTED TO SLEEP, PT MEDICATED WITH LORAZEPAM 0.25MG IV X1. LAZARO CATHETER REPLACED PER HOSPITAL POLICY, 16FR/10CC BALLOON INSERTED, PT TOLDERATED FAIRLY WELL, WITH CLEAN YELLOW URINE RETURNED. PT HAD 250ML URINE OUTPUT THIS SHIFT. IV SITES, LEFT AC AND RIGHT AC INFUSING WELL. BED IN LOW POSITION, CALL COOK WITHIN REACH.
[2019-09-30 07:25] LABS: Appearance, Urine Cloudy (Clear); Color, Urine Yellow (P-Yellow); White Blood Cells, Urine 25-50 /hpf (0-5)
[2019-09-30 07:26] LABS: Bacteria Few /hpf; Mucus Mod (0-Heavy); Squamous Epithelial Cells Few /hpf (Few)
[2019-09-30 11:27] LABS: Hematocrit 26.4 % (37.0-53.0); Hemoglobin 8.7 g/dL (13.5-17.5)
--- NOTE | 2019-09-30 11:43 | NUR ---
FIRM ABD - CONCERN NOTED THAT PATIENT HAS FIRM/HARD ABD MASS ON HIS LEFT SIDE - PATIENT REPORTS THAT IT HAS BEEN ONGOING SINCE ADMIT. PATIENTS PEG TUBE PLACED ON 09/14 BY MD PATTON. PATIENTS RUQ TO RLQ AND GOING DOWN TO RIGHT UPPER FLANK. MD YANEZ AT BEDSIDE TO ASSESS. STAT ABD CT WITH CONTRAST ORDERED.
[2019-09-30 11:54] LABS: Digoxin (Lanoxin) 1.13 ug/mL (0.80-2.00)
--- NOTE | 2019-09-30 13:49 | NUR ---
Pt visit this afternoon. Pt resting in bed upon arrival. Pt is A&OX3, able to answer place and current year. Pt unable to answer reason for hospital stay. Pt is difficult to understand due to slured and mumbled speech. Pt reports living at home with his daughter Agatha who is Pt's primary caregiver and POA. Pt reports mostly chair bound at home since having a CVA. Pt reports needing assistance with most of his ADL's. Engaged in therapeutic discussion regarding AD/POLST. Discussed the importance of having wishes documented with Pt agreeable. Pt reports he will have conversation with his daughter regarding completing AD/POLST. Instructed Pt to contact Palliative Care with any questions or concerns regarding AD/POLST. Spoke with Bedside RN and [facility] and discussed case. Palliative Care will remain available.
--- NOTE | 2019-09-30 15:30 | NUR ---
Spiritual care visit conducted. Patient is sitting up in bed and alert. Patient tells me that his hope and strength is in God and that he is moving through the days one day at a time. Patient tells me about his family and their desire to visit him and how hard it is to go through difficult times at home. I listen empathically, reinforce helpful attitudes and practices and provide companionship and prayer. Patient responds well and shows signs of an elevated mood. I will continue to remain available to patient and family.
[2019-09-30 16:44] LABS: Hematocrit 23.1 % (37.0-53.0); Hemoglobin 7.5 g/dL (13.5-17.5)
--- NOTE | 2019-09-30 17:02 | NUR ---
Received call from Bedside RN Dary reporting Pt has shown decline. Pt is resting in bed upon arrival. Pt is more somnolant and lethargic since this RN's last visit. Called and spoke with Pt's daughter Agatha ([email or web address]). Engaged in therapeutic discussion regarding Pt's decline in condition. Discussed Pt's code status and educated on life sustaining measures including risk factor and implications. Agatha reports recently completing a POLST with Pt and would like to keep him a full code for now. She reports plan to have further discussion with other family members. Reported plan for Pt to be transfered to ICU. Agatha expresses appreciation of visit and reports no other concerns at this time. Palliative Care will remain available.
[2019-09-30 17:21] LABS: PCO2 Arterial 22.7 mmHg (35-45); PO2 Arterial 98.3 mmHg (80-100); pH Blood Arterial 7.43 (7.35-7.45)
--- NOTE | 2019-09-30 17:42 | NUR ---
PCU TRANSFER/DAYSHIFT SUMMARY PATIENT ALERT AND ORIENTED TO SELF AND LOCATION AT BEGINNING OF SHIFT. EQUAL MUSIC VIDEO DIRECTOR AND PEDAL FLEX. AT BASELINE PATIENT IS AMBULATORY AT HOME; LIVES WITH DAUGHTER, KYLIE. PATIENT HAS 'WORD SALAD' BUT IS ABLE TO COMMUNICATE NEEDS AND SITUATION. HEART RATE IN 110-120'S AFIB AT BEGINNING OF SHIFT - VSS WITH CARDIEZEM GTT RUNNING AT 10 ML/HR. AT APPROX 1600 PATIENT NOTED TO BE DROWSY, PALE IN SKIN TONE AND LESS RESPONSIVE. LAND TITLE EXAMINER NOTIFIED. PATIENT NOTED TO BE HYPOTENSIVE - MD YANEZ NOTIFIED - LAB CALLED FOR H & H NOW AND FLUID BOLUS STARTED. ORDERS GIVEN TO TRANSFUSE 2 UNITS. BEAU CALLED MD TA - PATIENT TO GO TO OR. ICU ORDERS GIVEN AND PATIENT TRANSFERED TO ICU 9 - REPORTED TO BYRON SULLIVAN.
[2019-09-30 18:06] LABS: International Normalized Ratio 3.49; Prothrombin Time Results 34.8 Sec (9.7-11.5)
--- NOTE | 2019-09-30 18:07 | NUR ---
PT TRANSFERED FROM PCU 11 FOR RETROPERITONEAL BLEED/HYPOTENSION. DR ZACARIAS HERE AT BEDSIDE TO PLACE CENTRAL LINE TO LEFT IJ AREA. DR TA GOT CONSENT TO TAKE TO COAT OPERATOR INSULATOR TO TX BLEED. 1 UNIT PRBC'S INFUSED VIA PRESSURE BAG AND 2ND UNIT PRBC STARTED. 1 LITER LR BOLUS COMPLETED. LEVOPHED 10MCG STARTED PER DR ZACARIAS. NPO STATUS FOR NOW BRUISING NOTED TO LEFT UPPER ABD AREA TO FLANK AREA. 18G LAC DC'D 18G KEVIN SALINE LOCK PT AWAKE, ALERT AND FLAT AFFECT. NODS HEAD OF UNDERSTANDING OF PROCEDURES. PEG TUBE IN PLACE/CLAMPED. NO BLEEDING NOTED FROM SITE. WILL REPORT OFF TO NOC SHIFT.
[2019-09-30 20:19] LABS: Hematocrit 21.8 % (37.0-53.0); Hemoglobin 7.3 g/dL (13.5-17.5)
[2019-09-30 21:35] LABS: Hematocrit 19.3 % (37.0-53.0); Hemoglobin 6.5 g/dL (13.5-17.5)
[2019-10-01 05:11] LABS: BASOPHILS ABSOLUTE AUTO 0.02 K/mm3 (0.00-0.23); BASOPHILS PERCENT AUTO 0 % (0-2); EOSINOPHILS PERCENT AUTO 0 % (0-6); Hematocrit 26.5 % (37.0-53.0); Hemoglobin 8.7 g/dL (13.5-17.5); IMMATURE GRAN ABSOLUTE AUTO 0.21 K/mm3 (0.00-0.10); IMMATURE GRAN PERCENT AUTO 2 % (0-1); LYMPHOCYTES ABSOLUTE AUTO 0.88 K/mm3 (0.84-5.20); LYMPHOCYTES PERCENT AUTO 6 % (21-46); MONOCYTES ABSOLUTE AUTO 1.85 K/mm3 (0.16-1.47); MONOCYTES PERCENT AUTO 13 % (4-13); Mean Corpuscular HGB 28.2 pg (26.0-34.0); Mean Corpuscular HGB Conc 32.8 g/dL (31.5-36.5); Mean Corpuscular Volume 86 fL (80-100); Mean Platelet Volume 10.5 fL (9.1-12.4); NEUTROPHILS ABSOLUTE AUTO 10.82 K/mm3 (1.96-9.15); NEUTROPHILS PERCENT AUTO 79 % (41-73); NRBC ABSOLUTE 0.07 K/mm3 (0.00-0.02); NRBC Auto 0.5 /100 WBC (0.0-0.2); Platelet Count 159 K/mm3 (150-400); RDW Coefficient Variation 15.2 % (11.7-14.2); RDW Standard Deviation 46.1 fL (35.1-46.3); Red Blood Cell Count 3.08 M/mm3 (4.30-5.90); White Blood Cell Count 13.78 K/mm3 (4.00-11.30)
[2019-10-01 05:27] LABS: International Normalized Ratio 1.19
[2019-10-01 05:34] LABS: Albumin, Blood 2.2 g/dL (3.4-5.0); Albumin/Globulin Ratio 0.8 (0.8-1.8); Bun/Creatinine Ratio 27.2 (12.0-20.0); Calcium, Blood 7.8 mg/dL (8.5-10.1); Creatinine, Blood 1.36 mg/dL (0.60-1.20); Globulin, Blood 2.7 g/dL (2.2-4.0); Magnesium, Blood 1.9 mg/dL (1.6-2.4); Phosphorus, Blood 6.7 mg/dL (2.5-4.9); Potassium, Blood 4.2 mmol/L (3.5-5.5); Total Protein, Blood 4.9 g/dL (6.4-8.2); Troponin I 0.145 ng/mL (0.000-0.040)
[2019-10-01 05:35] LABS: Prothrombin Time Results 12.6 Sec (9.7-11.5)
--- NOTE | 2019-10-01 06:32 | NUR ---
PT FROM LOCK MASTER AT 1915, RIGHT FEMORAL ACCESS WITH ANGIOSEAL. SITE SOFT/NONTENDER, NO HEMATOMA OR BLEEDING. PT RECEIVED COIL TO BRANCH OF LEFT LUMBAR ARTERY. PT DENIES PAIN AT THIS TIME. PT RECEIVED UNITS 3 AND 4 OF PRBC WHILE IN LOCK MASTER. PT RECEIVE UNITS 3 AND 4 OF FFP ON ARRIVAL FROM LOCK MASTER TO ICU. PT ALERT AND ORIENTED WITH PERIODS OF CONFUSION/FORGETFULNESS. PT ABLE TO RECALL THAT HE IS "AT [facility]" BUT OCCASIONALLY BELIEVES HE IS AT HOME. PT SLOW TO RESPOND TO QUESTIONS, HX OF EXPRESSIVE APHASIA. PT REMOVED CENTRAL LINE DRESSING ON 2 OCCASIONS AND CONTINUES TO ATTEMPT TO PULL CENTRAL LINE OUT. BILATERAL SOFT WRIST RESTRAINTS PLACED TO PROTECT LINES. PT HYPOTENSIVE ON ARRIVAL FROM LOCK MASTER, LEVOPHED AT 7.5 MCG/MIN TO MAINTAIN MAP>65. LEVOPHED PLACED ON STANDBY @ 0200 AND PT'S BP REMAINS STABLE. LUNG SOUNDS CLEAR, SATS>95% ON ROOM. PT AFIB, HR 90-120'S. PEG TUBE CLAMPED. LEFT ABDOMEN DISTENDED, FIRM, TENDER WITH PALPATION. PT STATES PAIN IS UNCHANGED FROM ADMISSION. PT RECEIVED TOTAL 6 U PRBC'S, 4 U FFP. PT RECEIVED VIT K GTT. RECENT PTT 12.6. WILL REPORT TO DAYSGAFT NURSE.
--- NOTE | 2019-10-01 08:00 | NUR ---
PT A&O X3. RESTING COMFORTABLE IN BED, COOPERATIVE AND ABLE TO COMMUNICATE WITH STAFF. BILATERAL WRIST RESTRAINTS IN PLACE DUE TO ATTEMPTING TO PULL OUT CENTRAL LINE FROM NECK AREA. RE-EDUCATED REASONS FOR RESTRAINTS; PT UNDERSTANDS. LEFT SIDE ABD DISTENDED/FIRM AND TENDER TO TOUCH. PEG TUBE IN PLACE AND CLAMPED AND NO SIGNS OF BLEEDING FROM AREA. BP STABLE AND NO LONGER NEED OF LEVOPHED GTT. HEART RHYTHM A-FIB WITH RATE OF TEENS TO 120'S. WILL CONSULT WITH DOCTOR OF NEED FOR MEDICATION. BEDREST FOR NOW BUT CONTINUE TO REPOSITION NEEDED. CONTINUE TO MONITOR AND TX PER ORDERS.
[2019-10-01 10:07] LABS: Hematocrit 25.3 % (37.0-53.0); Hemoglobin 8.6 g/dL (13.5-17.5)
--- NOTE | 2019-10-01 10:43 | NUR ---
DR YANEZ, DR TA AND DR ZACARIAS HAVE BEEN BY TO SEE PATIENT. NEW VERBAL ORDERS PER DR TA AND DR ZACARIAS OK TO START TUBE FEEDING PER BEREAVEMENT COUNSELOR ORDERS.
--- NOTE | 2019-10-01 11:12 | NUR ---
STARTED PEG TUBE FEEDING PER FINISH MIXER ORDERS AT 1100. CONTINUE TO MONITOR FOR ANY CHANGES AND TX PRN.
--- NOTE | 2019-10-01 14:38 | NUR ---
REPORT GIVEN TO ABDELRAHMAN NEFF RN. WILL TRANSFER PATIENT TO PCU 14 VIA BED.
--- NOTE | 2019-10-01 18:07 | NUR ---
PCU DAYSHIFT SUMMARY PATIENT ALERT AND ORIENTED TO SELF AND LOCATION. DENIES ANY PAIN. VSS. HEART RATE SINUS TO SINUS TACH FROM 80-110'S. RESP E/U AT ROOM AIR. PATIENT HAS BEEN VERY DROWSY SINCE TRANSFER FROM ICU - ICU NURSE REPORTED THAT HE HAD BEEN RESTFUL T/O SHIFT. PATIENT DENIES ANY NEEDS. TUBE FEEDING RUNNING WITH FLUSH Q4HR. NO ACUTE DISTRESS NOTED. CALL LIGHT W/I REACH. WILL CONTINUE TO MONITOR AND REPORT TO NOC SHIFT RN.
[2019-10-01 22:09] LABS: Hematocrit 22.3 % (37.0-53.0); Hemoglobin 7.5 g/dL (13.5-17.5)
[2019-10-02 04:12] LABS: Hematocrit 21.2 % (37.0-53.0); Hemoglobin 6.9 g/dL (13.5-17.5); Mean Corpuscular HGB 28.9 pg (26.0-34.0); Mean Corpuscular HGB Conc 32.5 g/dL (31.5-36.5); Mean Platelet Volume 10.5 fL (9.1-12.4); NRBC ABSOLUTE 0.16 K/mm3 (0.00-0.02); NRBC Auto 1.2 /100 WBC (0.0-0.2); Platelet Count 141 K/mm3 (150-400); RDW Coefficient Variation 16.3 % (11.7-14.2); Red Blood Cell Count 2.39 M/mm3 (4.30-5.90); White Blood Cell Count 13.07 K/mm3 (4.00-11.30)
[2019-10-02 04:17] LABS: Mean Corpuscular Volume 89 fL (80-100)
[2019-10-02 04:30] LABS: Albumin, Blood 2.1 g/dL (3.4-5.0); Anion Gap 9 mmol/L (6-16); Blood Urea Nitrogen 40 mg/dL (8-24); Bun/Creatinine Ratio 32.8 (12.0-20.0); CO2, Blood 26 mmol/L (21-32); Calcium, Blood 7.8 mg/dL (8.5-10.1); Chloride, Blood 108 mmol/L (98-108); Creatinine, Blood 1.22 mg/dL (0.60-1.20); Glomerular Filtration Rate >60 (60-); Glucose, Blood 184 mg/dL (70-99); Magnesium, Blood 2.2 mg/dL (1.6-2.4); Phosphorus, Blood 4.4 mg/dL (2.5-4.9); Potassium, Blood 3.6 mmol/L (3.5-5.5); Sodium, Blood 143 mmol/L (136-145)
--- NOTE | 2019-10-02 05:00 | NUR ---
PROVIDER CALLED FOR LOW HGB. 1 UNIT PRBC ORDERED.
--- NOTE | 2019-10-02 05:48 | NUR ---
SHIFT SUMMARY PT SLEEPING IN ROOM COMFORTABLY AT THIS TIME. PT HAD SOME DROP IN HGB T/O NIGHT. BUT NO OTHER ACUTE CHANGES IN STATUS. PT SLEPT WELL T/O NIGHT. WOKE EASILY TO VERBAL. RESP EVEN UNLABORED ON RA W/ SATS >92%, PT DID START TO DESAT DURING NIGHT WHILE SLEEPING, 2L NC PLACED ON PT TO ASSIST WITH SLEEPING RESP. PT REMAINED >92% WHILE SLEEPING ON THE 2L NC. PT DENIED ANY ABD PAIN OR SOB. ABD FIRM TO PALPATION AT START OF SHIFT, ABD HAS SLIGHTLY SOFTENED DURING NIGHT, APPEARS TO BE LESS FIRM TO THIS RN AT APPROX 0500. PT SIGNS OF ACTIVE BLEEDING NOTED. PT HAS NOT HAD BM DURING THIS SHIFT. NOTED THE OCCULT STOOL SAMPLE IS UNCOLLECTED. PEG TUBE IN PLACE ON L ABD, APPEARS TO BE WNL. CONTINUIUS FEEDING W/ JEVITY 1.[address] ON [employer] PUMP. CURRENT RATE IS 35 W/ GOAL RATE OF 55. RESIDUALS HAVE BEEN ZERO. WILL ADVANCE TOLERATED TO GOAL RATE. PER PROVIDER 1 UNIT PRBC'S TO BE ADMINISTERED THIS AM, BLOOD CURRENTLY INFUSING IN CENTRAL LINE AT 75/HR. PT TOLERATING WELL. VSS. PT IS AFEBRILE. LAZARO CATH IN PLACE, DRAINING RONEL URINE TO GRAVITY. PT DENIES OTHER NEEDS. OCCASIONALLY PULLS AT CONT BIOX ON FINGER. REQUIRES REMINDING TO LEAVE IN PALCE FOR MONITORING. PT DOES HAVE HX OF CVA, IS SLOW TO RESPOND AND RESPONDS IN SHORT SENTANCES, SOMETIMES SAYS INCORRECT WORDS FOR TOPIC, IS EASILY REDIRECTED. CALL LIGHT IN REACH. BED ALARM ON FOR SAFETY.
--- NOTE | 2019-10-02 09:16 | NUR ---
PT WITH CLEAR BUT DECREASED LS POST PRBC, NS FLUSH IN PROGRESS NOW
--- NOTE | 2019-10-02 11:53 | NUR ---
Pt resting in bed with his eyes closed and appears comfortable. This RN did not disturb Pt at this time. Spoke with Bedside RN Gosia and discussed case. Pt continues to need blood transfusions. Palliative Care will continue to remain available.
[2019-10-02 12:27] LABS: BASOPHILS ABSOLUTE AUTO 0.01 K/mm3 (0.00-0.23); BASOPHILS PERCENT AUTO 0 % (0-2); EOSINOPHILS PERCENT AUTO 0 % (0-6); Hematocrit 24.1 % (37.0-53.0); IMMATURE GRAN ABSOLUTE AUTO 0.29 K/mm3 (0.00-0.10); IMMATURE GRAN PERCENT AUTO 2 % (0-1); LYMPHOCYTES ABSOLUTE AUTO 0.66 K/mm3 (0.84-5.20); LYMPHOCYTES PERCENT AUTO 5 % (21-46); MONOCYTES PERCENT AUTO 11 % (4-13); Mean Corpuscular HGB 29.9 pg (26.0-34.0); Mean Corpuscular HGB Conc 33.2 g/dL (31.5-36.5); Mean Corpuscular Volume 90 fL (80-100); Mean Platelet Volume 10.4 fL (9.1-12.4); NEUTROPHILS ABSOLUTE AUTO 10.09 K/mm3 (1.96-9.15); NEUTROPHILS PERCENT AUTO 81 % (41-73); NRBC ABSOLUTE 0.15 K/mm3 (0.00-0.02); NRBC Auto 1.2 /100 WBC (0.0-0.2); Platelet Count 140 K/mm3 (150-400); RDW Coefficient Variation 15.9 % (11.7-14.2); RDW Standard Deviation 49.8 fL (35.1-46.3); Red Blood Cell Count 2.68 M/mm3 (4.30-5.90); White Blood Cell Count 12.45 K/mm3 (4.00-11.30)
--- NOTE | 2019-10-02 17:42 | NUR ---
SHIFT NOTE PT'S FEEDINGS HAVE BEEN ADJUSTED TO GOAL RATE OF 55ML/HR WHICH HE HAS TOLERATED WELL. AND SOFT AND ROUND, WITH B/T PRESENT T/O, NO GUARDING NOTED. HGB HAS REMAINED AT 8.0 POST ADDITIONAL UNIT OF PRBC THIS AM. PT HAS SLEPT A MAJORITY OF THE DAY, AWAKENS EASILY TO VERBAL STIMULI WHEN STAFF ENTERS ROOM. VSS. PT REMAINS WITH GARBLED SPEECH, IS ABLE TO COMMUNICATE NEEDS WELL. ORAL CARE AND REPOSITIONING HAVE BEEN PERFORMED T/OTHE DAY
--- NOTE | 2019-10-02 19:59 | NUR ---
Assumed Care Pt sitting in bed, breathing even and unlabored or RA, VSS. Pt is cool to touch, extremities pale. Sensation intact. BLE with PBC in place and functioning. See shift assessment for detailed systems assessment. Pt with hx of CVA, flat affect, alert, oriented to person, place, event, family, following direction. intermittant confusion noted - at times, pt uses call light and is unaware of what he needs when staff comes in to respond to call light. Pt is calm and cooperative. Peg tube wnl. continuous feeds in place, medications given through tube, flushed and patent. Abd soft and non tender, mild distention noted. Will continue to monitor. No acute concerns to note.
--- NOTE | 2019-10-03 00:50 | NUR ---
Update Pt with complaint of pain and heat to abd. Tube feeding placed on hold and residual checked - 0ml residual. feedings resumed per orders. Upon palpation, abd is warm, distended, still soft but more firm than intiial assessment. VSS. Pt with appropriate color throughout, mentation intact, remains alert and oriented. Pt assessed by additional RN on floor to compare assessment findings d/t pt's high risk hx. Provider called and updated. Plan is to continue to monitor. Pt updated on plan. Pt edcuated to call with any changes or concerns.
[2019-10-03 02:06] LABS: Hematocrit 23.4 % (37.0-53.0); Hemoglobin 7.6 g/dL (13.5-17.5); Mean Corpuscular HGB 29.8 pg (26.0-34.0); Mean Corpuscular HGB Conc 32.5 g/dL (31.5-36.5); Mean Corpuscular Volume 92 fL (80-100); Mean Platelet Volume 10.1 fL (9.1-12.4); NRBC ABSOLUTE 0.08 K/mm3 (0.00-0.02); NRBC Auto 0.8 /100 WBC (0.0-0.2); Platelet Count 133 K/mm3 (150-400); RDW Coefficient Variation 16.3 % (11.7-14.2); RDW Standard Deviation 52.1 fL (35.1-46.3); Red Blood Cell Count 2.55 M/mm3 (4.30-5.90)
--- NOTE | 2019-10-03 02:07 | NUR ---
UPDATE pt with continued pain and complaints of "fullness" to abd. Abd is firm, hot, tender. Distention noted to left side increased from initial assessment. nonfarm animal caretaker in room with this RN for assessment, bruising and heat noted to left side/flank. at 0150: Provider called and made aware of findings. Provider orders stat H&H and to stop tube feedings until provider reassess. at 0200: H&H labs drawn from central line and sent to lab. SBP 130's; breathing even and unlabored on RA. Mentation intact. at 0210: Provider made aware of results of hgb 7.6. Provider at bedside to assess pt. Orders for pain control fent 25 mcg q4 PRN, hold tube feedings until provider reassess in AM, H&H in 4 hours. Orders implemented as provider ordered. Will contine to monitor pt.
[2019-10-03 02:21] LABS: Anion Gap 5 mmol/L (6-16); Blood Urea Nitrogen 28 mg/dL (8-24); Bun/Creatinine Ratio 34.7 (12.0-20.0); CO2, Blood 29 mmol/L (21-32); Chloride, Blood 112 mmol/L (98-108); Creatinine, Blood 0.81 mg/dL (0.60-1.20); Glomerular Filtration Rate >60 (60-); Glucose, Blood 176 mg/dL (70-99); Phosphorus, Blood 2.3 mg/dL (2.5-4.9); Potassium, Blood 3.7 mmol/L (3.5-5.5); Sodium, Blood 146 mmol/L (136-145)
[2019-10-03 04:39] LABS: Hematocrit 23.9 % (37.0-53.0); Hemoglobin 7.8 g/dL (13.5-17.5)
[2019-10-03 04:56] LABS: Albumin, Blood 2.1 g/dL (3.4-5.0); Anion Gap 5 mmol/L (6-16); Blood Urea Nitrogen 26 mg/dL (8-24); Bun/Creatinine Ratio 34.3 (12.0-20.0); CO2, Blood 29 mmol/L (21-32); Calcium, Blood 8.2 mg/dL (8.5-10.1); Chloride, Blood 111 mmol/L (98-108); Creatinine, Blood 0.76 mg/dL (0.60-1.20); Glomerular Filtration Rate >60 (60-); Glucose, Blood 140 mg/dL (70-99); Magnesium, Blood 2.4 mg/dL (1.6-2.4); Phosphorus, Blood 2.3 mg/dL (2.5-4.9); Potassium, Blood 3.5 mmol/L (3.5-5.5); Sodium, Blood 145 mmol/L (136-145)
--- NOTE | 2019-10-03 05:10 | NUR ---
UPDATE Pt with continued abd distention, pain unrelieved with fent 25 mcg administration, increased lethargy since pain medication administration (unable to stay awake during conversation), bruise deepening in color to L flank, pt reports "I feel like my legs are disconnected from my body". Vital signs remain stable. Provider called and notifed of condition. Orders recieved for stat H&H, renal panel, magnesium. D/C fentanyl. Provider to be called with results Results called to provider - hgb 7.8 (improved since previous draw). Provider orders stat VBG. Awaiting results from VBG at this time, will call provider with results.
[2019-10-03 05:21] LABS: Base Excess Venous 4.4 mmol/L; PCO2 Venous 43.8 mmHg (38-42); PO2 Venous 106 mmHg (38-42); pH Blood Venous 7.43 (7.34-7.37)
--- NOTE | 2019-10-03 06:20 | NUR ---
Shift Summary Pt with events as noted throughout previous notes. Currently, pt sleeping, arrousable, alert when arroused. Abdomen is tender, left side/flank firm, bruised, tender. Central line intact, draws and flushes wnl. Pt remains alert and oriented, speech difficult to understand at times (baseline per pt's daughter who called this shift). Overal, VSS. Multiple lab draws this shift. Most recent hbg 7.8. Provider aware of pt's condition throughout night. Will continue to monitor and report off to day RN.
--- NOTE | 2019-10-03 09:54 | NUR ---
Pt resting in bed upon arrival. Pt reports concerns that he may . Offered therapeutic listening and answered questions. Deferred some questions for Dr Shepard to answer. Dr Shepard does arrive during this RN's visit. Dr Shepard addresses Pt's concerns. Dr Shepard discusses further with Pt regarding his code status with Pt confirming he would like to remain a full code but will discuss this further with family at a later time. Pt reports no other concerns at this time. Spoke with Bedside RN Anabella and discussed case. Palliative Care will remain available.
--- NOTE | 2019-10-03 17:06 | NUR ---
SHIFT SUMMARY PT ALERT AND ORIENTED, BUT FORGETFUL AT TIMES. PT DIFFICULT TO UNDERSTAND DUE TO GARBLED SPEECH. VS STABLE. O2 SATS REMAIN ABOVE 90% ON RA. BP STABLE. DR. YANEZ IN THIS AM TO LOOK AT LEFT ABD THAT IS FIRM AND TENDER. SHE STATES IT IS UNCHANGED FROM YESTERDAY AND TO CONTINUE TUBE FEEDING. PT TOLERATING TUBE FEEDING SINCE 1000. ATTEMPTED TO REPOSITION PT Q2H, BUT HE REFUSED AT TIMES. ORAL CARE PROVIDED Q4H. WILL CONTINUE TO MONITOR AND REPORT TO ONCOMING RN. CALL LIGHT IN REACH.
--- NOTE | 2019-10-03 22:11 | NUR ---
Assumed Care Pt alert, oriented, VSS, breathing is even and unlabored on RA. Pt able to express needs, forgetful at times, expressing sadness related to prognosis and inability to have PO intake. Peg tube site is wnl, flushed with h2o after medication administration. Continuous feeds at goal rate and pt tolerating. Abd is tender to pt, left side/flank is buised and firm. Mackay is intact, draining clear yellow urine. Legs elevated on pillows, pt repositioned q2. Central line to left neck, all lumens flushed with 20cc NS and patent. See shift assessment for detailed assessment.Will continue to monitor.
--- NOTE | 2019-10-03 22:30 | NUR ---
Pt with increased confusion this shift, pulling at central line and ripping off dressings. Pt unable to be redirected with verbal education, becoming increasingly agitated d/t pt's own confusion stating "why don't I remember anything?" Orders recieved for soft mitt restraints to maintain pt safety d/t continued pulling at lines.
--- NOTE | 2019-10-04 02:30 | NUR ---
Pt pulling off restaints. Overall, pt is more calm than previous, not pulling on lines. Redirectable at this time. Pt is resting in bed. Will continue to monitor closely, restraints D/C'd at this time.
[2019-10-04 04:06] LABS: Hematocrit 23.5 % (37.0-53.0); Hemoglobin 7.4 g/dL (13.5-17.5); Mean Corpuscular HGB Conc 31.5 g/dL (31.5-36.5); Mean Platelet Volume 10.4 fL (9.1-12.4); NRBC ABSOLUTE 0.03 K/mm3 (0.00-0.02); NRBC Auto 0.4 /100 WBC (0.0-0.2); Platelet Count 159 K/mm3 (150-400); RDW Coefficient Variation 16.7 % (11.7-14.2); RDW Standard Deviation 53.3 fL (35.1-46.3); Red Blood Cell Count 2.47 M/mm3 (4.30-5.90); White Blood Cell Count 7.69 K/mm3 (4.00-11.30)
[2019-10-04 04:16] LABS: Mean Corpuscular Volume 95 fL (80-100)
[2019-10-04 04:23] LABS: Albumin, Blood 1.9 g/dL (3.4-5.0); Anion Gap 4 mmol/L (6-16); Blood Urea Nitrogen 19 mg/dL (8-24); Bun/Creatinine Ratio 28.8 (12.0-20.0); CO2, Blood 26 mmol/L (21-32); Calcium, Blood 7.9 mg/dL (8.5-10.1); Chloride, Blood 111 mmol/L (98-108); Creatinine, Blood 0.66 mg/dL (0.60-1.20); Glomerular Filtration Rate >60 (60-); Glucose, Blood 156 mg/dL (70-99); Phosphorus, Blood 2.3 mg/dL (2.5-4.9); Potassium, Blood 3.7 mmol/L (3.5-5.5); Sodium, Blood 141 mmol/L (136-145)
--- NOTE | 2019-10-04 05:14 | NUR ---
Provider called regarding hgb 7.4. per nurse notify from Dr. Harrington - goal to keep hgb > 8.0. Pt remains confused this shift, calm at this time, hemodynamically stable, no signs or sx of active bleed. orders recieved to recheck h&h at 0800.
--- NOTE | 2019-10-04 06:21 | NUR ---
Shift Summary Pt with continued confusion throughout shift, improving as shift continues. Restraints d/c'd at 0230. Pt has been moved from PCU 14 to PCU 10 for closer monitoring for patient safety. Central line intact, patent, draws. Dressing changed this shift. Pt is alert, oriented to person, place, disoriented to events and "why am I here?". Pt with two, large, loose bowel movements this shift. Both incont. Pt with chronic indwelling tafoya, patent and draining. Stat lock moved this shift to maintain skin integrity. Oral care completed q4hrs, pt turned q2. compliant with care. See previous notes for events of shift. Will monitor until day RN assumes care
[2019-10-04 07:44] LABS: Stool Occult Blood Guaiac 1 Pos (Neg)
--- NOTE | 2019-10-04 07:51 | NUR ---
pt laying in bed awake, alert, some confusion noted, he is able to follow commands, lungs are clear t/o is on r/a, resp even and unlabored, no cough noted, but occ cough was reported, hrr, tele in place running sr per monitor, see strip, no edema noted, ppp+1, cap refill <3sec, vs stable, afebrile, piv to heather, c.l. to left ij, sites are clear and patent, btx4, abd round is firm on the left side, soft on the right, has a hematoma on the left, peg tube in place with continuous feed, npo, incont, attends in place, chronic tafoya draining sohail urine, skin has a pink coccyx, mepilex in place, maew, connection worker are slighty weaker on left side, justin, speech is a bit slurred, call light in reach.
--- NOTE | 2019-10-04 11:45 | NUR ---
transfusion infusing, pt tolerating well, he has been repositioned. no complaints, he is confused, he recieved a new power glide to chapin, c.l. was removed with out diff, piv was removed as well as it was infiltrated and painful to flush. no further concerns at this time. call light in reach.
--- NOTE | 2019-10-04 12:43 | NUR ---
Spiritual care visit conducted. Patient is lying in bed and laert. Patient is improving since my last visit. He is speaking much more clearly and is less confused. Patient remembers me and immediately tells me that his deepest consern is that his family would know Tramaine as their personal Lord and Savior. Patient tells me that he misses his family and gets tearful. Patient then is quick to tell me that he is not depressed and that he is taking things one day at a time. Patient also confirms that he has no fears of dying and looks forward to being with Tramaine and his loved ones that have gone before him. I listen emapthically, normalize patient's experience, reinforce helpful attitudes and practices and provide prayer (especially for his loved ones who "don't know Tramaine"). Patient responds well and shows signs of an elevated mood. I will continue to remain available to patient and family.
--- NOTE | 2019-10-04 19:23 | NUR ---
pt recieved 2 units of prbc today, he tolerated well, vs remained stable. no acute changes. he has been confused at times, spoke on the phone, seemed to lift his spirits. call light in reach.
--- NOTE | 2019-10-05 05:53 | NUR ---
Shift Summary Pt with no acute events overnight. VSS. Pt alseep for approx 9 hrs this shift, alert with verbal stimuli. Confused at times, oriented to name and , place, following commands. Pt with hx of CVA which impairs ability to understand speech at times. Pt with powerglide to REGLA patent and flushes. Peg tube feedings continuous at goal rate this shift. Flushes per orders and with all medication administration. 0ml residual. Pt with one BM this shift, tafoya cath in place, abx infused per orders. No acute decline to note from initial shift assessment. Will continue to monitor until day RN assumes care.
[2019-10-05 08:10] LABS: Hematocrit 34.1 % (37.0-53.0); Hemoglobin 11.2 g/dL (13.5-17.5); Mean Corpuscular HGB 29.6 pg (26.0-34.0); Mean Corpuscular HGB Conc 32.8 g/dL (31.5-36.5); Mean Platelet Volume 9.7 fL (9.1-12.4); NRBC ABSOLUTE 0.02 K/mm3 (0.00-0.02); NRBC Auto 0.2 /100 WBC (0.0-0.2); Platelet Count 190 K/mm3 (150-400); RDW Coefficient Variation 15.9 % (11.7-14.2); RDW Standard Deviation 48.7 fL (35.1-46.3); Red Blood Cell Count 3.78 M/mm3 (4.30-5.90); White Blood Cell Count 9.41 K/mm3 (4.00-11.30)
[2019-10-05 08:11] LABS: Mean Corpuscular Volume 90 fL (80-100)
[2019-10-05 08:25] LABS: Albumin, Blood 2.1 g/dL (3.4-5.0); Anion Gap 6 mmol/L (6-16); Blood Urea Nitrogen 18 mg/dL (8-24); Bun/Creatinine Ratio 30.1 (12.0-20.0); CO2, Blood 26 mmol/L (21-32); Calcium, Blood 8.2 mg/dL (8.5-10.1); Chloride, Blood 108 mmol/L (98-108); Glomerular Filtration Rate >60 (60-); Glucose, Blood 169 mg/dL (70-99); Phosphorus, Blood 2.6 mg/dL (2.5-4.9); Potassium, Blood 3.9 mmol/L (3.5-5.5); Sodium, Blood 140 mmol/L (136-145)
--- NOTE | 2019-10-05 08:28 | NUR ---
pt laying in bed asleep, wakes easily, but immediately returns to sleep, has some confusion, lungs are clear t/o, resp even and unlabored, no cough noted, hrr, tele in place running sr per monitor, see strip, trace edema noted to b/l le, ppp+ faint, cap refill <3sec, vs stable, afebrile, iv site is power glide to chapin, site is clear and patent, btx4, abd flat soft nontender, voids without diff, skin c/w/d, window shade cloth sewer are a bit weaker on left, speech is a bit impaired, peg tube in place with cont feed, at 55mls/hr, no residule, abd soft on right side, firm on left, around to side, chronic tafoya cath draining clear yellow urine, skin has mepilex to coccyx, justin, call light in reach.
--- NOTE | 2019-10-05 11:34 | NUR ---
pt resting quietly in bed, wakes easily. no acute changes. call light in reach.
--- NOTE | 2019-10-05 14:40 | NUR ---
Assumed Care Received report from NATE Cole-PCU @ 1355, patient arrived @ 1440 via bed and PCU techs. Awake and able to make conversations, though with garbled speech d/t hx CVA. Tube feeding reinitiated @ 55mLs/hr via kangaroo pump continuously per order. Mackay patent, below bed, and draining well. Repositioned patient to comfort, bed in lowest position, call light and phone in reach. Will continue to monitor.
--- NOTE | 2019-10-05 14:49 | NUR ---
pt has been transfered to medical floor, report was given to recieving nurse, all belongings went with pt. he was transfered via bed with jewel bearing driller's in attendence.
--- NOTE | 2019-10-05 17:37 | NUR ---
Shift Summary Patient transferred from PCU this afternoon. Able to make needs known. Suction has been set up in room and continous tube feeding remains. NO c/o pain, nausea, vomiting. Residual was approximately 5 mL. Suction within patient's reach for use as needed. No other concerns at this time. Will continue to monitor.
--- NOTE | 2019-10-06 05:29 | NUR ---
SHIFT SUMMARY PT HAS HAD NO ACUTE CHANGES THIS SHIFT, TEMP WAS 100.2 @ START OF SHIFT, TURNED HEAT DOWN FROM 85 TO 68 & REMOVED 4 BLANKETS, TEMP DOWN TO 99.4. MEDICATED 1X FOR C/O ABD & BOTTOM PAIN (REPOSITIONED ALSO), PT CONTINUES TO HAVE NO RESIDUAL AT Q4 CKS, TOLERATING FEEDINGS WELL T/O SHIFT, PT SLEEPING AT THIS TIME, CALL LIGHT IN REACH, WILL CONT TO MONITOR UNTIL REPORT GIVEN TO DAY RN.
[2019-10-06 05:42] LABS: Hematocrit 34.6 % (37.0-53.0); Hemoglobin 11.3 g/dL (13.5-17.5); Mean Corpuscular HGB 29.6 pg (26.0-34.0); Mean Corpuscular HGB Conc 32.7 g/dL (31.5-36.5); Mean Corpuscular Volume 91 fL (80-100); Mean Platelet Volume 9.9 fL (9.1-12.4); Platelet Count 231 K/mm3 (150-400); RDW Coefficient Variation 15.9 % (11.7-14.2); Red Blood Cell Count 3.82 M/mm3 (4.30-5.90); White Blood Cell Count 11.24 K/mm3 (4.00-11.30)
[2019-10-06 05:44] LABS: Anion Gap 7 mmol/L (6-16); Blood Urea Nitrogen 19 mg/dL (8-24); Bun/Creatinine Ratio 33.7 (12.0-20.0); CO2, Blood 23 mmol/L (21-32); Calcium, Blood 8.5 mg/dL (8.5-10.1); Chloride, Blood 108 mmol/L (98-108); Creatinine, Blood 0.56 mg/dL (0.60-1.20); Glomerular Filtration Rate >60 (60-); Glucose, Blood 182 mg/dL (70-99); Phosphorus, Blood 2.6 mg/dL (2.5-4.9); Potassium, Blood 3.7 mmol/L (3.5-5.5); Sodium, Blood 138 mmol/L (136-145)
[2019-10-06 13:11] LABS: Stool Occult Blood Guaiac 1 Neg (Neg)
--- NOTE | 2019-10-06 17:02 | NUR ---
Shift Summary A/O to self, family, and hospital. Patient was evaluated by physical therapy today, recommending SNF d/t weakness. Febrile of 100.0, blankets removed and room cooled and is now afebrile. Denies needs, no complaints of anything. Residual amount remains zero and patient still tolerating tube feedings well. Patient had one incontinent bowel movement. No other concerns.
--- NOTE | 2019-10-07 01:45 | NUR ---
PT ACCIDENTALLY PULLED HIS POWERGLIDE OUT WHEN REMOVING HIS GOWN. NEW 22G PIV PLACED TO DORINDA AND YAA.
--- NOTE | 2019-10-07 03:04 | NUR ---
SUMMARY: PT IS A/O TO SELF/FAMILY AND SURROUNDINGS. HE HAS MILD APHASIA AT BASELINE POST CVA W/OCCASIONAL DIFFICULTY FINDING WORDS BUT IS ABLE TO SPECIFY NEEDS. HE IS NPO W/MOUTH CARE PROVIDED PRN AND ASP PREC'S MAINTAINED. CONT TUBE FEED INFUSES AT GOAL OF 55 ML/HR W/SCHEDULED FLUSHES PER RX. PILLS CRUSHED AND ADMIN VIA TUBE, NO RESIDUALS OBSERVED. CHRONIC LAZARO REMAINS PATENT AND DRAINING. OPSITE DX IS C/D/I AT R.GROIN CATH SITE. LARGE HEMATOMA PERSISTS TO L.SIDE FLANK, IT REMAINS FIRM/RIGID BUT UNCHANGED. TURN SCHEDULE MAINTAINED AND PILLOWS PLACED FOR SBD PREVENTION. ATTENDS CHANGED PRN FOR STOOL INCONTINENCE, BOWEL MEDS HELD FOR UNFORMED BM. PT ACCIDENTALLY PULLED PG OUT SO NEW PIV PLACED TO R.FA. IV ABX RECIEVED THEN SL. NO ACUTE CHANGES. VSS AND AFEBRILE. SNF D/C RECOMMENDED PER PT/OT. WCTM AND REPORT TO DAY RN.
[2019-10-07 05:25] LABS: BASOPHILS ABSOLUTE AUTO 0.03 K/mm3 (0.00-0.23); BASOPHILS PERCENT AUTO 0 % (0-2); EOSINOPHILS PERCENT AUTO 1 % (0-6); Hematocrit 35.9 % (37.0-53.0); Hemoglobin 11.6 g/dL (13.5-17.5); IMMATURE GRAN ABSOLUTE AUTO 0.14 K/mm3 (0.00-0.10); IMMATURE GRAN PERCENT AUTO 1 % (0-1); LYMPHOCYTES PERCENT AUTO 10 % (21-46); MONOCYTES ABSOLUTE AUTO 1.22 K/mm3 (0.16-1.47); MONOCYTES PERCENT AUTO 12 % (4-13); Mean Corpuscular HGB 29.4 pg (26.0-34.0); Mean Corpuscular HGB Conc 32.3 g/dL (31.5-36.5); Mean Corpuscular Volume 91 fL (80-100); Mean Platelet Volume 9.4 fL (9.1-12.4); NEUTROPHILS ABSOLUTE AUTO 7.92 K/mm3 (1.96-9.15); NEUTROPHILS PERCENT AUTO 76 % (41-73); Platelet Count 271 K/mm3 (150-400); RDW Coefficient Variation 15.8 % (11.7-14.2); RDW Standard Deviation 49.9 fL (35.1-46.3); Red Blood Cell Count 3.94 M/mm3 (4.30-5.90); White Blood Cell Count 10.41 K/mm3 (4.00-11.30)
[2019-10-07 05:38] LABS: Albumin, Blood 2.1 g/dL (3.4-5.0); Anion Gap 5 mmol/L (6-16); Blood Urea Nitrogen 20 mg/dL (8-24); CO2, Blood 25 mmol/L (21-32); Calcium, Blood 8.5 mg/dL (8.5-10.1); Chloride, Blood 108 mmol/L (98-108); Creatinine, Blood 0.54 mg/dL (0.60-1.20); Glomerular Filtration Rate >60 (60-); Glucose, Blood 195 mg/dL (70-99); Phosphorus, Blood 2.4 mg/dL (2.5-4.9); Potassium, Blood 3.9 mmol/L (3.5-5.5); Sodium, Blood 138 mmol/L (136-145)
--- NOTE | 2019-10-07 18:03 | NUR ---
PT. SLEEPING. NO NOTEABLE CHANGES THIS SHIFT. PLEASANT AND COOPERATIVE, HAD 1 LARGE BM TODAY
--- NOTE | 2019-10-08 04:35 | NUR ---
SUMMARY: PT IS A/OX3 BUT IS OCCASIONALLY FORGETFULL UPON AWAKENING AND REORIENTS W/REMINDERS. HE HAS MILD APHASIA FROM PRIOR CVA W/DELAYED RESPONSES AND WHISPERED SPEECH BUT IS ABLE TO SPECIFY NEEDS. HE IS NPO W/MOUTH CARE PROVIDED AND ASP PREC'S MAINTAINED. TUBE FEED VIA PEG INFUSES AT GOAL OF 55 ML/HR W/SHEDULED WATER FLUSHES, NO RESIDUALS OBSERVED. MEDS ADMIN CRUSHED VIA TUBE AND STOOL SOFTENERS HELD FOR LOOSE BM ON DAY SHIFT. NO STOOL OBSERVED THIS SHIFT. CHRONIC INDWELLING LAZARO IS PATENT AND DRAINING. TURN SCHEDULE MAINTAINED AND CREAM APPLIED TO PINK BUTTOCKS. PILLOWS PLACED FOR SBD PREVENTION AND EXT'S ELEVATED IN BED. HEMATOMA TO L.SIDE/FLANK REMAINS RIGID AND FIRM BUT NO WORSENING OBSERVED. R.GROIN CATH SITE HAS BANDAID THAT REMAINS C/D/I, NO BLEEDING NOTED. R.FA IV RUNS AT TKVO. HE'S DENIED PAIN/COMPLAINTS BUT WAS GIVEN BREAK FROM SCD'S. NO ACUTE CHANGES, VSS/AFEBRILE. PT MAY D/C TODAY TO REHAB/SNF. ROMI AND REPORT TO DAY RN.
[2019-10-08 05:37] LABS: Hematocrit 37.2 % (37.0-53.0); Hemoglobin 11.7 g/dL (13.5-17.5); Mean Corpuscular HGB 29.4 pg (26.0-34.0); Mean Corpuscular HGB Conc 31.5 g/dL (31.5-36.5); Mean Platelet Volume 9.8 fL (9.1-12.4); Platelet Count 340 K/mm3 (150-400); RDW Coefficient Variation 15.6 % (11.7-14.2); RDW Standard Deviation 51.7 fL (35.1-46.3); Red Blood Cell Count 3.98 M/mm3 (4.30-5.90); White Blood Cell Count 9.65 K/mm3 (4.00-11.30)
[2019-10-08 05:39] LABS: Mean Corpuscular Volume 94 fL (80-100)
[2019-10-08 05:58] LABS: Albumin, Blood 2.1 g/dL (3.4-5.0); Anion Gap 4 mmol/L (6-16); Blood Urea Nitrogen 22 mg/dL (8-24); Bun/Creatinine Ratio 35.7 (12.0-20.0); CO2, Blood 28 mmol/L (21-32); Calcium, Blood 9.1 mg/dL (8.5-10.1); Chloride, Blood 107 mmol/L (98-108); Creatinine, Blood 0.62 mg/dL (0.60-1.20); Glomerular Filtration Rate >60 (60-); Glucose, Blood 178 mg/dL (70-99); Phosphorus, Blood 3.2 mg/dL (2.5-4.9); Potassium, Blood 4.4 mmol/L (3.5-5.5); Sodium, Blood 139 mmol/L (136-145)
--- NOTE | 2019-10-08 14:25 | NUR ---
PT. IV IN RIGHT HAND DC'D INTACT. LAZARO CATHETER EMPTIED, AND PEG TUBE CLAMPED AND PLUGGED. REPORT CALLED TO YESSICA AT [facility]. PT. TRANSPORTED BY [facility]IA [facility].
== END 2019-10-08 14:46 | DRG 981 ==
LOC: ER 18:08 → ICUW 19:25 → PCU 19:25 → ICUW 09-30 17:31 → PCU 10-01 15:09 → MEDS 10-05 15:01 → ENPENDDIS 10-08 12:01 → MEDS 10-08 14:46
PROVIDERS: Emergency Medicine; Internal Medicine; Internal Medicine Pulmonary Disease; Radiology Diagnostic Radiology; ADMIT Family Medicine
PROC: 30233N1 Transfusion of Nonautologous Red Blood Cells into Peripheral Vein, Percutaneous Approach (ICD-10-PCS; principal; 2019-09-30)
PROC: 02HV33Z Insertion of Infusion Device into Superior Vena Cava, Percutaneous Approach (ICD-10-PCS; 2019-09-30)
PROC: 3E043XZ Introduction of Vasopressor into Central Vein, Percutaneous Approach (ICD-10-PCS; 2019-09-30)
PROC: 04L03DZ Occlusion of Abdominal Aorta with Intraluminal Device, Percutaneous Approach (ICD-10-PCS; 2019-09-30)
PROC: 30233K1 Transfusion of Nonautologous Frozen Plasma into Peripheral Vein, Percutaneous Approach (ICD-10-PCS; 2019-09-30)
PROC: B410ZZZ Fluoroscopy of Abdominal Aorta (ICD-10-PCS; 2019-09-30)
DX: T83.511A Infection and inflammatory reaction due to indwelling urethral catheter, initial encounter (principal); K66.1 Hemoperitoneum; A41.81 Sepsis due to Enterococcus; R65.20 Severe sepsis without septic shock; D62 Acute posthemorrhagic anemia; I48.20 Chronic atrial fibrillation, unspecified; N39.0 Urinary tract infection, site not specified; I25.2 Old myocardial infarction; Z87.891 Personal history of nicotine dependence; Z95.5 Presence of coronary angioplasty implant and graft; I25.10 Atherosclerotic heart disease of native coronary artery without angina pectoris; Z79.01 Long term (current) use of anticoagulants; I69.391 Dysphagia following cerebral infarction; N40.0 Benign prostatic hyperplasia without lower urinary tract symptoms; E11.51 Type 2 diabetes mellitus with diabetic peripheral angiopathy without gangrene; I10 Essential (primary) hypertension; Z79.82 Long term (current) use of aspirin; Z93.1 Gastrostomy status; D47.3 Essential (hemorrhagic) thrombocythemia
CPT/HCPCS: 36245; 36415; 36430; 36556; 36600; 37244; 51702; 71045; 74177; 75726; 75774; 80048; 80053; 80069; 80162; 81001; 82272; 82330; 82607; 82728; 82746; 82803; 82947; 83540; 83550; 83605; 83735; 84100; 84484; 85014; 85018; 85025; 85027; 85610; 85730; 86850; 86900; 86901; 86923; 87040; 87077; 87086; 87186; 92526; 92610; 93005; 93010; 93306; 96361; 96365; 96375; 97110; 97116; 97162; 97166; 97530; 97535; 99152; 99153; 99284-25; 99285-25; A9270; A9270-GY; C1751; C1760; C1769; C1887; C1894; J0696; J1644; J1650; J1940; J1956; J2060; J2250; J2405; J2543; J3010; J3430; J7030; J7040; J7050; J7060; J7120; P9016; P9059; Q9967

== ENCOUNTER → 2019-11-08 | Outpatient (CLI) | payer MEDICARE, OTHER ==
[2019-11-08 14:00] LABS: Anion Gap 5 mmol/L (6-16); Blood Urea Nitrogen 23 mg/dL (8-24); Bun/Creatinine Ratio 36.1 (12.0-20.0); CO2, Blood 26 mmol/L (21-32); Calcium, Blood 8.8 mg/dL (8.5-10.1); Chloride, Blood 123 mmol/L (98-108); Creatinine, Blood 0.64 mg/dL (0.60-1.20); Glomerular Filtration Rate >60 (60-); Glucose, Blood 152 mg/dL (70-99); Sodium, Blood 154 mmol/L (136-145)
== END | disposition home or self-care (01) ==
LOC: LAB SHORT 13:02 → LAB RH 13:02
PROVIDERS: Family Medicine
DX: D50.0 Iron deficiency anemia secondary to blood loss (chronic) (principal)
CPT/HCPCS: 80048